=== PATIENT | female | born 1965 | race Caucasian/White ===

== ENCOUNTER 2017-01-22 10:05 | Emergency (ER) | payer MEDICARE, SELFPAY ==
--- NOTE | 2017-01-22 10:50 | ERPHSYRPT ---
- History of Present Illness Time Seen by Provider: 01/22/17 10:39 Source: patient Exam Limitations: no limitations Patient Subjective Stated Complaint: rt leg pain Triage Nursing Assessment: states got a pancreatic pain pump in october and in november her rt leg started swelling. she has had US, Ct and other diag tests. scheduled for an echo this coming wednesday. norted swelling from thigh to toes of rt leg. redness noted to lower calf/ankle. pedal pulse present. pain with ambulation. no open or scabbed areas. Physician History: The patient is a 51-year-old female who comes in with chronic right lower leg swelling, redness, and pain. The leg condition began within the day after a pain pump was placed in her abdomen for chronic pancreatitis. The pain pump was put in in October. Today she has severe pain in her forefoot. She called her primary care doctor in the nurse at his office said come to the ER. Her past medical history is significant for chronic pancreatitis, hypothyroidism, high cholesterol, depression, anxiety, and COPD. Method of Injury: unknown Occurred: other (2 to 3 months) Quality: constant Severity of Pain-Max: severe Severity of Pain-Current: severe Lower Extremities Pain: foot: right Modifying Factors: Improves With: nothing Associated Symptoms: none Allergies/Adverse Reactions: NSAIDS (Non-Steroidal Anti-Inflamma Allergy (Mild, Verified 01/22/17 10:25) unsure of reaction doxycycline Allergy (Verified 01/22/17 10:25) Tightness of Throat Home Medications: Cyclobenzaprine HCl [Flexeril] 10 mg PO BID 08/14/13 [History] Promethazine HCl 25 mg [Phenergan 25 mg] 25 mg PO UD PRN 08/14/13 [History ] Alprazolam [Xanax] 1 mg PO TID 12/27/14 [History] Citalopram Hydrobromide 20 mg* [ceLEXa 20 MG] 20 mg PO HS 12/27/14 [History] Gabapentin 300 mg PO HSPRN PRN 12/27/14 [History] Loperamide HCl 2 mg [Imodium 2 mg] 2 mg PO QIDPRN PRN 12/27/14 [History] Atorvastatin Calcium 20 mg PO DAILY 07/13/16 [History] Furosemide 20 mg [Lasix 20 mg] 40 mg PO DAILY 07/13/16 [History] Levothyroxine Sodium 50 Mcg [Synthroid 50 Mcg] 50 mcg PO DAILY 07/13/16 [ History] Hx Tetanus, Diphtheria Vaccination/Date Given: Yes Hx Influenza Vaccination/Date Given: No Hx Pneumococcal Vaccination/Date Given: No Immunizations Up to Date: Yes - Review of Systems Constitutional: No Fever, No Chills Eyes: No Symptoms Ears, Nose, & Throat: No Symptoms Respiratory: No Cough, No Dyspnea Cardiac: No Chest Pain, No Edema, No Syncope Abdominal/Gastrointestinal: No Abdominal Pain, No Nausea, No Vomiting, No Diarrhea Genitourinary Symptoms: No Dysuria Musculoskeletal: Other (right foot pain), No Back Pain, No Neck Pain Skin: No Rash Neurological: No Dizziness, No Focal Weakness, No Sensory Changes Psychological: No Symptoms Endocrine: No Symptoms Hematologic/Lymphatic: No Symptoms Immunological/Allergic: No Symptoms All Other Systems: Reviewed and Negative - Past Medical History Pertinent Past Medical History: Yes Neurological History: No Pertinent History ENT History: No Pertinent History Cardiac History: No Pertinent History Respiratory History: Other, Asthma, Bronchitis, Emphysema Endocrine Medical History: No Pertinent History Musculoskeletal History: No Pertinent History GI Medical History: Polyps, Other, Pancreatitis History: Other Psycho-Social History: Depression, Other Female Reproductive Disorders: Cervical Cancer, Ovarian Cancer Other Medical History: PANCREATIC DIVISION, CHRONIC PAIN - Past Surgical History Past Surgical History: Yes Neuro Surgical History: No Pertinent History Cardiac: No Pertinent History Respiratory: No Pertinent History Gastrointestinal: Exploratory Laparoscopy, Pancreatic Surgery, Cholecystectomy Genitourinary: No Pertinent History Musculoskeletal: No Pertinent History Female Surgical History: Hysterectomy Other Surgical History: 16 different abdominal surgeries, reconstructions bile port, 2 Feeding tubes--removed - Social History Smoking Status: Former smoker How long have you smoked: 30 years Exposure to second hand smoke: Yes Drug Use: none Patient Lives Alone: No - Female History Hx Now: No - Nursing Vital Signs Nursing Vital Signs: Initial Vital Signs Temperature 98.8 F Temperature Source Oral Pulse Rate 96 Respiratory Rate 18 Blood Pressure [Right Arm] 150/89 Pain Intensity 4 - Physical Exam General Appearance: mild distress Eyes, Ears, Nose, Throat Exam: moist mucous membranes Neck Exam: non-tender, supple Cardiovascular/Respiratory Exam: decreased breath sounds (wheezes) Gastrointestinal/Abdominal Exam: non-tender, guarding Back Exam: normal inspection, No vertebral tenderness Hips Exam: bilateral: non-tender, normal inspection Legs Exam: bilateral leg: non-tender, normal inspection Knees Exam: bilateral knee: non-tender, normal inspection Ankle Exam: right ankle: swelling, left ankle: normal inspection Foot Exam: right foot: swelling, left foot: normal inspection Neuro/Tendon Exam: normal sensation, normal motor functions Mental Status Exam: alert, oriented x 3, cooperative Skin Exam: normal color, warm, dry SpO2 Interpretation: borderline oxygenation SpO2: 93 Oxygen Delivery: Room Air - Progress Progress: unchanged Progress Note: 01/22/17 11:05 I discussed the patient with her primary medical doctor, Dr. Alonso, who recommends only tramadol 50 mg and Tylenol 500 mg for pain control at this time. He recommends no further testing. He will see the patient at his office on January 26, Wednesday, at 10:45. Discussed with DrCong: Gavin Will see patient in: office (January 26 at 10:45 in [place]) - Departure Time of Disposition: 11:07 Departure Disposition: Home Clinical Impression: Right foot pain Condition: Stable Critical Care Time: No Additional Instructions: You have right foot pain with an unknown cause. I spoke with your medical doctor, Dr. Alonso, who recommends few take tramadol 50 mg every 6 hours and Tylenol 500 mg every 6 hours as needed for pain. Follow-up at your scheduled appointment on Wednesday. Follow-up with Dr. Lobato on Wednesday at 1045. Prescriptions: Tramadol HCl 50 mg [Ultram 50 mg] 50 mg PO Q6H PRN PRN #12 tablet PRN Reason: Pain
[2017-01-22 11:25] VITALS: BP 140/74; PULSE 94; O2SAT 98
== END 2017-01-22 11:23 | disposition home or self-care (01) ==
LOC: ED 10:05
DX: M79.671 Pain in right foot (principal)
CPT/HCPCS: 99283

== ENCOUNTER 2017-08-03 09:28 | Inpatient (IN) | payer MEDICARE ==
[2017-08-03] MEDS ORDERED: Zofran 4 MG/2 ML VIAL IV PRN (20:34)
[2017-08-03] MEDS ORDERED: TYLENOL 325 MG PO PRN (20:34)
[2017-08-03] MEDS ORDERED: solu-MEDROL 40 MG IV SCH (20:45)
[2017-08-03] MEDS: Sodium Chloride 0.9% 1000 ML 1,000 ML IV SCH (21:01)
[2017-08-03] MEDS ORDERED: DUONEB 0.5-3 MG/3 ml Neb IH ONE (21:19)
[2017-08-03] MEDS: DUONEB 0.5-3 MG/3 ml Neb IH SCH (21:22)
[2017-08-03 21:39] LABS: Hematocrit 46.2 % (35-47); Hemoglobin 14.5 gm/dl (12.0-16.0); Mean Cell Volume 97.9 fl (78-100); Mean Corpuscular Hemoglobin 30.7 pg (26-32); Mean Corpuscular Hgb Concent. 31.4 g/dl (32-36); Mean Platelet Volume 10.1 fl (6-9.5); Platelet Count 269 K/mm3 (150-450); Red Blood Count 4.72 M/mm3 (4.1-5.4); Red Cell Distribution Width 13.4 % (11.5-14.0); White Blood Count 12.3 K/mm3 (4.0-10.5)
[2017-08-03 21:54] LABS: ALBUMIN 3.7 g/dL (3.4-5.0); ALKALINE PHOSPHATASE 173 U/L (46-116); ANION GAP 12.6 MEQ/L (5-15); BLOOD UREA NITROGEN 7 mg/dL (9-20); CHLORIDE 101 mEq/L (98-107); Calcium 9.1 mg/dL (8.5-10.1); Carbon Dioxide 28.9 mEq/L (21-32); Creatinine 1 0.87 mg/dl (0.55-1.30); EST GLOMERULAR FILTRATION RATE > 60 ML/MIN; Glucose 93 MG/DL (70-110); NT PRO BNP 59 pg/ml (0-125); Potassium 3.6 mEq/L (3.5-5.1); SGOT/AST 31 U/L (15-37); SGPT/ALT 53 U/L (12-78); SODIUM 139 mEq/L (136-145); Total Protein 8.4 gm/dL (6.4-8.2)
[2017-08-03 22:09] LABS: ABSOLUTE NEUTROPHILS 7.96 (1.4-6.9); BAND 2 % (0.0-2.0); Eosinophil 2 % (0.00-3.0); Lymphocytes 24 % (24-44); Monocyte 9 % (0.0-12.0); Neutrophils 63 % (36.0-66.0); Platelet Estimate NORMAL (NORMAL); Total Cells Counted 100
[2017-08-03] MEDS: ROCEPHIN 1 Gm-D5w 50 ml Bag** 1 G/50 ML IVPB IV SCH (23:15)
[2017-08-03] MEDS: ENOXAPARIN SODIUM SQ SCH (23:16)
[2017-08-03] MEDS: XANAX 1 MG PO SCH (23:51)
[2017-08-03] MEDS: Zocor 10MG PO SCH (23:51)
[2017-08-03] MEDS: ceLEXa 20 MG PO SCH (23:51)
[2017-08-03] MEDS: PHENERGAN 25 MG PO PRN (23:51)
[2017-08-03] MEDS: NEURONTIN 300 MG PO SCH (23:51)
[2017-08-03] MEDS: Cyclobenzaprine 10 MG PO PRN (23:52)
[2017-08-04] MEDS ORDERED: DUONEB 0.5-3 MG/3 ml Neb IH PRN (00:23)
[2017-08-04 01:22] LABS: Appearance CLEAR (CLEAR); Leukocyte Esterase NEGATIVE (NEGATIVE); Nitrite POSITIVE (NEGATIVE); Protein,Urine Dip NEGATIVE (Negative)
[2017-08-04 01:23] LABS: Bacteria MODERATE /HPF (NEGATIVE); Bilirubin NEGATIVE (NEGATIVE); Blood NEGATIVE Ery/ul (0-5); Epithelial Cells RARE /HPF (FEW); Glucose NEGATIVE (NEGATIVE); Ketones NEGATIVE (NEGATIVE); Urobilinogen NORMAL mg/dL (0-1)
[2017-08-04] MEDS: solu-MEDROL 40 MG IV SCH ×3 (05:31→23:01)
[2017-08-04] MEDS ORDERED: IMODIUM 2 MG PO PRN (07:09)
[2017-08-04] MEDS ORDERED: [UNRECOGNIZED DRUG - OTHER] SQ SCH (07:15)
[2017-08-04] MEDS ORDERED: PATIENT OWN MEDICATION SQ PRN (07:21)
[2017-08-04] MEDS: DUONEB 0.5-3 MG/3 ml Neb IH SCH ×4 (07:45→19:14)
[2017-08-04] MEDS: Sodium Chloride 0.9% 1000 ML 1,000 ML IV SCH (08:16)
[2017-08-04] MEDS: NEURONTIN 300 MG PO SCH ×3 (09:25→23:01)
[2017-08-04] MEDS: SYNTHROID 50 MCG PO SCH (09:25)
[2017-08-04] MEDS: XANAX 1 MG PO SCH ×3 (09:25→23:01)
[2017-08-04] MEDS: Protonix 40MG Tablet PO SCH (09:25)
--- NOTE | 2017-08-04 09:30 | PCM.NOTE ---
Date and Time: 08/04/17927 Subjective Assessment: still wheezing - Review of Systems Constitutional: No Fever, No Chills Eyes: No Symptoms Ears, Nose, & Throat: No Symptoms Respiratory: Cough, Orthopnea, Short Of Breath Cardiac: No Chest Pain, No Edema, No Syncope Abdominal/Gastrointestinal: No Abdominal Pain, No Nausea, No Vomiting, No Diarrhea Genitourinary Symptoms: No Dysuria Musculoskeletal: No Back Pain, No Neck Pain Skin: No Rash Neurological: No Dizziness, No Focal Weakness, No Sensory Changes Psychological: No Symptoms Endocrine: No Symptoms Hematologic/Lymphatic: No Symptoms Immunological/Allergic: No Symptoms Objective Exam General Appearance: no apparent distress, alert Neurologic Exam: alert, oriented x 3, cooperative, normal mood/affect, nml cerebellar function, sensation nml, No motor deficits Skin Exam: normal color, warm, dry Eye Exam: PERRL, EOMI, eyes nml inspection Ears, Nose, Throat Exam: normal ENT inspection, pharynx normal, moist mucous membranes Neck Exam: normal inspection, non-tender, supple, full range of motion Respiratory Exam: diminished breath sounds, crackles/rales, rhonchi, wheezing, No respiratory distress Cardiovascular Exam: regular rate/rhythm, normal heart sounds Gastrointestinal/Abdomen Exam: soft, No tenderness, No mass Extremity Exam: normal inspection, normal range of motion Back Exam: normal inspection, normal range of motion, No CVA tenderness, No vertebral tenderness Pelvic Exam: deferred Rectal Exam: deferred OBJECTIVE DATA Vital Signs: Vital Signs - 24 hr Temp Pulse Resp BP Pulse Ox 08/04/17 08:00 98.2 F 88 22 136/65 94 L 08/04/17 07:51 90 18 95 08/04/17 04:10 98.0 F 92 H 16 140/77 94 L 08/04/17 04:00 94 L 08/04/17 00:26 98.5 F 90 22 138/63 93 L 08/04/17 00:00 93 L 08/03/17 21:22 91 H 20 95 08/03/17 20:00 98.4 F 93 H 16 129/84 90 L 08/03/17 16:57 98.5 F 110 H 22 140/85 90 L 08/03/17 16:45 98.5 F 110 H 22 140/85 90 L Oxygen-Last 24 hours O2 Percentage 2 Liters = 28% O2 Percentage 2 Liters = 28% O2 Percentage 2 Liters = 28% O2 Percentage 2 Liters = 28% O2 Percentage 2 Liters = 28% Pain Assessment - Last Documented Pain Intensity 4 Pain Scale Used 0-10 Pain Scale Intake and Output: Intake & Output 08/01/17 08/02/17 08/03/17 08/04/17 11:59 11:59 11:59 11:59 Intake Total 1426 Output Total 850 Balance 576 Weight 64.229 kg Lab Results: Accuchecks Date 08/04/17 Date 08/03/17 Time 21:30 Accucheck Value: 132 Accucheck Value: 98 Accucheck Value: 98 Lab Results-Last 24 Hours 08/03/17 08/03/17 08/03/17 Range/Units 18:30 18:30 23:33 WBC 12.3 H (4.0-10.5) K/mm3 RBC 4.72 (4.1-5.4) M/mm3 Hgb 14.5 (12.0-16.0) gm/dl Hct 46.2 (35-47) % MCV 97.9 (78-100) fl MCH 30.7 (26-32) pg MCHC 31.4 L (32-36) g/dl RDW 13.4 (11.5-14.0) % Plt Count 269 (150-450) K/mm3 MPV 10.1 H (6-9.5) fl Absolute Neutrophils 7.96 (1.4-6.9) Segmented Neutrophils 63 (36.0-66.0) % Band Neutrophils 2 (0.0-2.0) % Lymphocytes (Manual) 24 (24-44) % Monocytes (Manual) 9 (0.0-12.0) % Eosinophils (Manual) 2 (0.00-3.0) % Differential Comment NORMAL Platelet Estimate NORMAL (NORMAL) Sodium 139 (136-145) mEq/L Potassium 3.6 (3.5-5.1) mEq/L Chloride 101 (98-107) mEq/L Carbon Dioxide 28.9 (21-32) mEq/L Anion Gap 12.6 (5-15) MEQ/L BUN 7 L (9-20) mg/dL Creatinine 0.87 (0.55-1.30) mg/dl Estimated GFR > 60 ML/MIN Glucose 93 (70-110) MG/DL Calcium 9.1 (8.5-10.1) mg/dL Total Bilirubin 0.40 (0.2-1.0) mg/dL AST 31 (15-37) U/L ALT 53 (12-78) U/L Alkaline Phosphatase 173 H (46-116) U/L NT-Pro-B Natriuret Pep 59 (0-125) pg/ml Serum Total Protein 8.4 H (6.4-8.2) gm/dL Albumin 3.7 (3.4-5.0) g/dL Ur Collection Type CLEAN CATCH Urine Color YELLOW (YELLOW) Urine Appearance CLEAR (CLEAR) Urine pH 5.0 (5-6) Ur Specific Onia 1.010 (1.005-1.025) Urine Protein NEGATIVE (Negative) Urine Ketones NEGATIVE (NEGATIVE) Urine Blood NEGATIVE (0-5) Jaret/ul Urine Nitrite POSITIVE (NEGATIVE) Urine Bilirubin NEGATIVE (NEGATIVE) Urine Urobilinogen NORMAL (0-1) mg/dL Ur Leukocyte Esterase NEGATIVE (NEGATIVE) Urine Microscopic RBC 0-2 (0-2) /HPF Urine Microscopic WBC 5-10 (0-5) /HPF Ur Epithelial Cells RARE (FEW) /HPF Urine Bacteria MODERATE (NEGATIVE) /HPF Urine Glucose NEGATIVE (NEGATIVE) mg/dL Specimen Received 08/03/17 2330 Radiology Exams: Radiology Procedures Category Date Time Status CHEST 2 VIEWS (PA AND LAT) Stat Exams 08/03/17 22:59 Taken ECHO W/2D AND DOPPLER [US] Routine Exams 08/04/17 20:41 Taken Assessment/Plan (1) COPD with exacerbation Current Visit: Yes Status: Acute Assessment & Plan: Chief Complaint Diagnosis COPD EXACERBATION Allergies Allergy/AdvReac Type Severity Reaction Status Date / Time NSAIDS (Non-Steroidal Allergy Mild Verified 01/22/17 10:25 Anti-Inflamma doxycycline Allergy Tightness Verified 01/22/17 10:25 of Throat Vital Signs (Last 24 hours) Temp Pulse Resp BP Pulse Ox 08/04/17 08:00 98.2 F 88 22 136/65 94 L 08/04/17 07:51 90 18 95 08/04/17 04:10 98.0 F 92 H 16 140/77 94 L 08/04/17 04:00 94 L 08/04/17 00:26 98.5 F 90 22 138/63 93 L 08/04/17 00:00 93 L 08/03/17 21:22 91 H 20 95 08/03/17 20:00 98.4 F 93 H 16 129/84 90 L 08/03/17 16:57 98.5 F 110 H 22 140/85 90 L 08/03/17 16:45 98.5 F 110 H 22 140/85 90 L Home Medications Medication Instructions Recorded Confirmed Last Taken Type Non-Formulary Drug [Non-Formulary 0 mg UD 08/03/17 08/03/17 08/03/17 History Item] Current Medications Generic Name Dose Route Start Last Admin Trade Name Freq PRN Reason Stop Dose Admin Acetaminophen 325 mg 08/03/17 20:34 Tylenol 325 Mg PO 09/02/17 20:33 Q4H PRN PRN PAIN, FEVER, HEADACHE Albuterol/Ipratropium 3 ml 08/03/17 19:00 08/04/17 07:45 Duoneb 0.5-3 Mg/3 Ml Neb IH 09/02/17 18:59 3 ml QIDRT LARON Administration Albuterol/Ipratropium 3 ml 08/04/17 00:23 Duoneb 0.5-3 Mg/3 Ml Neb IH 09/03/17 00:22 Q4HPRN PRN SHORTNESS OF BREATH/WHEEZING Alprazolam 1 mg 08/03/17 23:00 08/04/17 09:25 Xanax 1 Mg PO 09/02/17 22:59 1 mg TID LARON Administration Citalopram Hydrobromide 20 mg 08/03/17 23:00 08/03/17 23:51 Celexa 20 Mg PO 09/02/17 22:59 20 mg HS LARON Administration Cyclobenzaprine HCl 10 mg 08/03/17 23:11 08/03/17 23:52 Cyclobenzaprine 10 Mg PO 09/02/17 23:10 10 mg QIDPRN PRN Administration MUSCLE SPASMS Enoxaparin Sodium 40 mg 08/03/17 22:00 08/03/17 23:16 Enoxaparin Sodium SQ 09/02/17 21:59 40 mg Q24H22 LARON Administration Gabapentin 300 mg 08/03/17 23:00 08/04/17 09:25 Neurontin 300 Mg PO 09/02/17 22:59 300 mg TID LARON Administration Ceftriaxone Sodium/Dextrose 1 g in 50 mls @ 100 mls/hr 08/03/17 22:00 23:15 Rocephin 1 Gm-D5w 50 Ml Bag IV 09/02/17 21:59 100 mls/hr Q24H22 LARON Administration Sodium Chloride 1,000 mls @ 100 mls/hr 08/03/17 20:45 08/04/17 08:16 Sodium Chloride 0.9% 1000 Ml IV 09/02/17 20:44 100 mls/hr .Q10H LARON Administration Levothyroxine Sodium 50 mcg 08/04/17 10:00 08/04/17 09:25 Synthroid 50 Mcg PO 09/03/17 09:59 50 mcg DAILY LARON Administration Loperamide HCl 2 mg 08/04/17 07:09 Imodium 2 Mg PO 09/03/17 07:08 QIDPRN PRN diarrhea Methylprednisolone Sodium Succinate 40 mg 08/04/17 06:00 08/04/17 05:31 Solu-Medrol 40 Mg IV 09/02/17 20:44 40 mg Q8HT LARON Administration Ondansetron HCl 4 mg 08/03/17 20:34 Zofran 4 Mg/2 Ml Vial IV 09/02/17 20:33 Q6H PRN PRN NAUSEA/VOMITING Pantoprazole Sodium 40 mg 08/04/17 10:00 08/04/17 09:25 Protonix 40mg Tablet PO 09/03/17 09:59 40 mg DAILY LARON Administration Patient Own Medication 0 each 08/04/17 07:21 Patient Own Medication SQ 09/03/17 07:20 UD PRN PAIN Promethazine HCl 25 mg 08/03/17 23:13 08/03/17 23:51 Phenergan 25 Mg PO 09/02/17 23:12 25 mg Q6HPRN PRN Administration NAUSEA Simvastatin 10 mg 08/03/17 23:30 08/03/17 23:51 Zocor 10mg PO 09/02/17 23:29 10 mg HS LARON Administration Discontinued Medications Generic Name Dose Route Start Last Admin Trade Name Freq PRN Reason Stop Dose Admin Albuterol/Ipratropium Confirm 08/03/17 21:19 Duoneb 0.5-3 Mg/3 Ml Neb Administered 08/03/17 21:20 Dose 3 ml IH .STK-MED ONE Methylprednisolone Sodium Succinate 40 mg 08/03/17 20:45 08/03/17 21:01 Solu-Medrol 40 Mg IV 09/02/17 20:44 40 mg Q8H LARON Administration Intake & Output (Last 24 hours) 08/01/17 08/02/17 08/03/17 08/04/17 11:59 11:59 11:59 11:59 Intake Total 1426 Output Total 850 Balance 576 Weight 64.229 kg Laboratory Results (Last 24 hours) 08/03/17 08/03/17 08/03/17 23:33 18:30 18:30 WBC 12.3 H RBC 4.72 Hgb 14.5 Hct 46.2 MCV 97.9 MCH 30.7 MCHC 31.4 L RDW 13.4 Plt Count 269 MPV 10.1 H Absolute Neutrophils 7.96 Segmented Neutrophils 63 Band Neutrophils 2 Lymphocytes (Manual) 24 Monocytes (Manual) 9 Eosinophils (Manual) 2 Differential Comment NORMAL Platelet Estimate NORMAL Sodium 139 Potassium 3.6 Chloride 101 Carbon Dioxide 28.9 Anion Gap 12.6 BUN 7 L Creatinine 0.87 Estimated GFR > 60 Glucose 93 Calcium 9.1 Total Bilirubin 0.40 AST 31 ALT 53 Alkaline Phosphatase 173 H NT-Pro-B Natriuret Pep 59 Serum Total Protein 8.4 H Albumin 3.7 Ur Collection Type CLEAN CATCH Urine Color YELLOW Urine Appearance CLEAR Urine pH 5.0 Ur Specific Onia 1.010 Urine Protein NEGATIVE Urine Ketones NEGATIVE Urine Blood NEGATIVE Urine Nitrite POSITIVE Urine Bilirubin NEGATIVE Urine Urobilinogen NORMAL Ur Leukocyte Esterase NEGATIVE Urine Microscopic RBC 0-2 Urine Microscopic WBC 5-10 Ur Epithelial Cells RARE Urine Bacteria MODERATE Urine Glucose NEGATIVE Specimen Received 08/03/17 2330 Orders (Last 24 hours) Category Date Time Status Up Ad Makenzie TOLERATED Activity 08/03/17 20:39 Active Accucheck ACHS Care 08/03/17 20:38 Active Admission/Status Order ROUTINE Care 08/03/17 20:37 Active CHEST 2 VIEWS (PA AND LAT) Stat Exams 08/03/17 22:59 Taken ECHO W/2D AND DOPPLER [US] Routine Exams 08/04/17 20:41 Taken CBC W DIFF Stat Lab 08/03/17 18:30 Completed CMP Stat Lab 08/03/17 18:30 Completed Manual Differential NC Stat Lab 08/03/17 18:30 Completed NT PRO BNP Stat Lab 08/03/17 18:30 Completed UA W/ MICROSCOPIC Stat Lab 08/03/17 23:33 Completed Acetaminophen 325 mg [Tylenol 325 mg] Med 08/03/17 20:34 Active 325 mg PO Q4H PRN PRN Albuterol/Ipratropium 3ml Neb* [DUONEB 0.5-3 MG/3 ml Med 08/03/17 21:19 Discontinued Neb] 3 ml IH .STK-MED ONE Albuterol/Ipratropium 3ml Neb* [DUONEB 0.5-3 MG/3 ml Med 08/04/17 00:23 Active Neb] 3 ml IH Q4HPRN PRN Albuterol/Ipratropium 3ml Neb* [DUONEB 0.5-3 MG/3 ml Med 08/03/17 19:00 Active Neb] 3 ml IH QIDRT Alprazolam 1 mg [Xanax 1 mg] Med 08/03/17 23:00 Active 1 mg PO TID Ceftriaxone 1 GM/50 ML PREMIX* [ROCEPHIN 1 Gm-D5w 50 ml Med 08/03/17 22:00 Active Bag] 1 g in 50 ml IV Q24H22 Citalopram Hydrobromide 20 mg* [ceLEXa 20 MG] Med 08/03/17 23:00 Active 20 mg PO HS Cyclobenzaprine HCl 10 mg [Cyclobenzaprine 10 MG] Med 08/03/17 23:11 Active 10 mg PO QIDPRN PRN Enoxaparin Sodium [Enoxaparin Sodium] Med 08/03/17 22:00 Active 40 mg SQ Q24H22 Gabapentin 300 mg [Neurontin 300 mg] Med 08/03/17 23:00 Active 300 mg PO TID Levothyroxine Sodium 50 Mcg [Synthroid 50 Mcg] Med 08/04/17 10:00 Active 50 mcg PO DAILY Loperamide HCl 2 mg [Imodium 2 mg] Med 08/04/17 07:09 Active 2 mg PO QIDPRN PRN Methylprednisolone Sod Suc 40M [solu-MEDROL 40 MG] Med 08/03/17 20:45 Discontinued 40 mg IV Q8H Methylprednisolone Sod Suc 40M [solu-MEDROL 40 MG] Med 08/04/17 06:00 Active 40 mg IV Q8HT NaCl 0.9% 1000 ml [Sodium Chloride 0.9% 1000 ML] 1,000 Med 08/03/17 20:45 Active ml IV 100 mls/hr Ondansetron HCl 4 mg/2 ml [Zofran 4 MG/2 ML VIAL] Med 08/03/17 20:34 Active 4 mg IV Q6H PRN PRN PANTOPRAZOLE 40 mg Tablet [Protonix 40MG Tablet] Med 08/04/17 10:00 Active 40 mg PO DAILY Patient Own Med [Patient Own Medication] Med 08/04/17 07:21 Active 0 each SQ UD PRN Promethazine HCl 25 mg [Phenergan 25 mg] Med 08/03/17 23:13 Active 25 mg PO Q6HPRN PRN Simvastatin 10 mg [Zocor 10MG] Med 08/03/17 23:30 Active 10 mg PO HS EKG STAT RT 08/03/17 20:34 Completed Oxygen NASAL CANNULA 2 lpm RT 08/04/17 00:25 Active Pulse Oximetry Q4H RT 08/03/17 20:40 Active Respiratory Nebulizer PRN RT 08/04/17 00:25 Active Respiratory Nebulizer UD RT 08/03/17 19:00 Active Respiratory Therapy Consult ROUTINE RT 08/03/17 20:34 Completed Patient Care Notes (Last 24 hours) 08/03/17 18:35 Nursing Note by Stephanie Dee DR FOR ORDERS ON DIRECT ADMIT Initialized on 08/03/17 18:35 - END OF NOTE Code(s): J44.1 - CHRONIC OBSTRUCTIVE PULMONARY DISEASE W (ACUTE) EXACERBATION (2) UTI (urinary tract infection) Current Visit: Yes Status: Acute Qualifiers: Urinary tract infection type: acute pyelonephritis Qualified Code(s): N10 - Acute pyelonephritis Code(s): N39.0 - URINARY TRACT INFECTION, SITE NOT SPECIFIED (3) History of chronic pancreatitis Current Visit: No Status: Chronic Code(s): Z87.19 - PERSONAL HISTORY OF OTHER DISEASES OF THE DIGESTIVE SYSTEM
--- NOTE | 2017-08-04 09:36 | XRAY ---
Indication: Short of breath. Comparison: November 12, 2015. PA/lateral chest again demonstrates normal heart, lungs, and bony thorax with incidental calcified granulomas.
[2017-08-04] MEDS: Zocor 10MG PO SCH (23:00)
[2017-08-04] MEDS: ENOXAPARIN SODIUM SQ SCH (23:01)
[2017-08-04] MEDS: ceLEXa 20 MG PO SCH (23:01)
[2017-08-04] MEDS: ROCEPHIN 1 Gm-D5w 50 ml Bag** 1 G/50 ML IVPB IV SCH (23:01)
[2017-08-04] MEDS: Cyclobenzaprine 10 MG PO PRN (23:44)
[2017-08-05] MEDS: Sodium Chloride 0.9% 1000 ML 1,000 ML IV SCH (01:41)
[2017-08-05] MEDS: solu-MEDROL 40 MG IV SCH ×3 (05:53→22:28)
[2017-08-05 06:10] LABS: Hematocrit 38.1 % (35-47); Hemoglobin 11.7 gm/dl (12.0-16.0); Mean Cell Volume 98.4 fl (78-100); Mean Corpuscular Hemoglobin 30.2 pg (26-32); Mean Corpuscular Hgb Concent. 30.7 g/dl (32-36); Platelet Count 251 K/mm3 (150-450); Red Blood Count 3.87 M/mm3 (4.1-5.4); Red Cell Distribution Width 13.4 % (11.5-14.0); White Blood Count 16.8 K/mm3 (4.0-10.5)
[2017-08-05 06:45] LABS: ALBUMIN 2.9 g/dL (3.4-5.0); ALKALINE PHOSPHATASE 118 U/L (46-116); ANION GAP 10.7 MEQ/L (5-15); BLOOD UREA NITROGEN 13 mg/dL (9-20); CHLORIDE 106 mEq/L (98-107); Calcium 8.6 mg/dL (8.5-10.1); Carbon Dioxide 28.4 mEq/L (21-32); Creatinine 1 0.65 mg/dl (0.55-1.30); EST GLOMERULAR FILTRATION RATE > 60 ML/MIN; Glucose 153 MG/DL (70-110); Potassium 4.6 mEq/L (3.5-5.1); SGOT/AST 21 U/L (15-37); SGPT/ALT 38 U/L (12-78); SODIUM 141 mEq/L (136-145); Total Protein 6.7 gm/dL (6.4-8.2)
[2017-08-05] MEDS: DUONEB 0.5-3 MG/3 ml Neb IH SCH ×4 (06:55→19:39)
--- NOTE | 2017-08-05 09:03 | XRAY ---
Indication: Pain. No known injury. Comparison: None 2 views of the right knee demonstrates mild osteopenia, medial joint space narrowing, and proximal tibial stress lines. Query old medial tibial plateau fracture. No other bony, articular, or soft tissue abnormalities. Comment: Preliminary interpretation was made by [facility]. No critical discrepancy.
[2017-08-05] MEDS: NEURONTIN 300 MG PO SCH ×3 (09:51→22:27)
[2017-08-05] MEDS: SYNTHROID 50 MCG PO SCH (09:51)
[2017-08-05] MEDS: XANAX 1 MG PO SCH ×3 (09:51→22:27)
[2017-08-05] MEDS: Protonix 40MG Tablet PO SCH (09:51)
[2017-08-05] MEDS: Cyclobenzaprine 10 MG PO PRN ×2 (09:55→22:28)
--- NOTE | 2017-08-05 13:41 | PCM.NOTE ---
Date and Time: 08/05/17 1340 Subjective Assessment: doing better - Review of Systems Constitutional: No Fever, No Chills Eyes: No Symptoms Ears, Nose, & Throat: No Symptoms Respiratory: No Cough, No Short Of Breath Cardiac: No Chest Pain, No Edema, No Syncope Abdominal/Gastrointestinal: No Abdominal Pain, No Nausea, No Vomiting, No Diarrhea Genitourinary Symptoms: No Dysuria Musculoskeletal: No Back Pain, No Neck Pain Skin: No Rash Neurological: No Dizziness, No Focal Weakness, No Sensory Changes Psychological: No Symptoms Endocrine: No Symptoms Hematologic/Lymphatic: No Symptoms Immunological/Allergic: No Symptoms Objective Exam General Appearance: no apparent distress, alert Neurologic Exam: alert, oriented x 3, cooperative, normal mood/affect, nml cerebellar function, sensation nml, No motor deficits Skin Exam: normal color, warm, dry Eye Exam: PERRL, EOMI, eyes nml inspection Ears, Nose, Throat Exam: normal ENT inspection, pharynx normal, moist mucous membranes Neck Exam: normal inspection, non-tender, supple, full range of motion Respiratory Exam: normal breath sounds, lungs clear, No respiratory distress Cardiovascular Exam: regular rate/rhythm, normal heart sounds Gastrointestinal/Abdomen Exam: soft, No tenderness, No mass Extremity Exam: normal inspection, normal range of motion Back Exam: normal inspection, normal range of motion, No CVA tenderness, No vertebral tenderness Pelvic Exam: deferred Rectal Exam: deferred OBJECTIVE DATA Vital Signs: Vital Signs - 24 hr Temp Pulse Resp BP Pulse Ox 08/05/17 12:04 88 20 96 08/05/17 11:57 98.8 F 91 H 20 117/64 96 08/05/17 08:00 98.1 F 82 20 110/66 96 08/05/17 06:55 82 16 95 08/05/17 04:00 97.9 F 81 16 117/61 95 08/05/17 00:00 98.4 F 98 H 22 131/68 97 08/04/17 20:00 98.1 F 106 H 24 138/74 95 08/04/17 19:14 100 H 20 96 08/04/17 16:00 98.2 F 107 H 22 118/68 92 L 08/04/17 14:58 106 H 18 95 Oxygen-Last 24 hours O2 Percentage 2 Liters = 28% O2 Percentage 2 Liters = 28% O2 Percentage 2 Liters = 28% O2 Percentage 2 Liters = 28% O2 Percentage 2 Liters = 28% O2 Percentage 2 Liters = 28% Pain Assessment - Last Documented Pain Intensity 4 Pain Scale Used 0-10 Pain Scale Intake and Output: Intake & Output 08/03/17 08/04/17 08/05/17 08/06/17 11:59 11:59 11:59 11:59 Intake Total 1426 3519 Output Total 850 1600 Balance 576 1919 Weight 64.229 kg Lab Results: Accuchecks Date 08/05/17 Date 08/05/17 Date 08/04/17 Time 11:30 Time 07:30 Accucheck Value: 169 Accucheck Value: 150 Accucheck Value: 139 Accucheck Value: 178 Lab Results-Last 24 Hours 08/03/17 08/05/17 08/05/17 Range/Units 18:30 05:45 05:45 WBC 16.8 H (4.0-10.5) K/mm3 RBC 3.87 L (4.1-5.4) M/mm3 Hgb 11.7 L (12.0-16.0) gm/dl Hct 38.1 (35-47) % MCV 98.4 (78-100) fl MCH 30.2 (26-32) pg MCHC 30.7 L (32-36) g/dl RDW 13.4 (11.5-14.0) % Plt Count 251 (150-450) K/mm3 MPV 10.0 H (6-9.5) fl Sodium 141 (136-145) mEq/L Potassium 4.6 (3.5-5.1) mEq/L Chloride 106 (98-107) mEq/L Carbon Dioxide 28.4 (21-32) mEq/L Anion Gap 10.7 (5-15) MEQ/L BUN 13 (9-20) mg/dL Creatinine 0.65 (0.55-1.30) mg/dl Estimated GFR > 60 ML/MIN Glucose 153 H (70-110) MG/DL Hemoglobin A1c 6.0 (4.5-6.2) Calcium 8.6 (8.5-10.1) mg/dL Total Bilirubin 0.10 L (0.2-1.0) mg/dL AST 21 (15-37) U/L ALT 38 (12-78) U/L Alkaline Phosphatase 118 H (46-116) U/L Serum Total Protein 6.7 (6.4-8.2) gm/dL Albumin 2.9 L (3.4-5.0) g/dL Radiology Exams: Radiology Procedures Category Date Time Status CHEST 2 VIEWS (PA AND LAT) Stat Exams 08/03/17 22:59 Completed ECHO W/2D AND DOPPLER [US] Routine Exams 08/04/17 20:41 Taken KNEE (1 OR 2 VIEW) Urgent Exams 08/04/17 22:35 Completed Assessment/Plan (1) COPD with exacerbation Current Visit: Yes Status: Acute Code(s): J44.1 - CHRONIC OBSTRUCTIVE PULMONARY DISEASE W (ACUTE) EXACERBATION (2) UTI (urinary tract infection) Current Visit: Yes Status: Acute Qualifiers: Urinary tract infection type: acute pyelonephritis Qualified Code(s): N10 - Acute pyelonephritis Code(s): N39.0 - URINARY TRACT INFECTION, SITE NOT SPECIFIED (3) History of chronic pancreatitis Current Visit: No Status: Chronic Code(s): Z87.19 - PERSONAL HISTORY OF OTHER DISEASES OF THE DIGESTIVE SYSTEM
[2017-08-05] MEDS ORDERED: TORAdol 10 MG TABLET PO SCH (14:15)
[2017-08-05] MEDS: TORAdol 10 MG TABLET PO SCH ×3 (15:19→22:27)
[2017-08-05] MEDS: PHENERGAN 25 MG PO PRN ×2 (15:22→23:06)
[2017-08-05] MEDS: ceLEXa 20 MG PO SCH (22:27)
[2017-08-05] MEDS: Zocor 10MG PO SCH (22:27)
[2017-08-05] MEDS: ROCEPHIN 1 Gm-D5w 50 ml Bag** 1 G/50 ML IVPB IV SCH (22:28)
[2017-08-05] MEDS: ENOXAPARIN SODIUM SQ SCH (22:28)
[2017-08-06] MEDS: Sodium Chloride 0.9% 1000 ML 1,000 ML IV SCH (00:39)
[2017-08-06] MEDS: solu-MEDROL 40 MG IV SCH ×3 (05:38→21:41)
[2017-08-06] MEDS: DUONEB 0.5-3 MG/3 ml Neb IH SCH ×4 (05:49→18:52)
--- NOTE | 2017-08-06 08:25 | PCM.NOTE ---
Date and Time: 08/06/17823 Subjective Assessment: c/o right knee pain, otherwise doing better - Review of Systems Constitutional: No Fever, No Chills Eyes: No Symptoms Ears, Nose, & Throat: No Symptoms Respiratory: No Cough, No Short Of Breath Cardiac: No Chest Pain, No Edema, No Syncope Abdominal/Gastrointestinal: No Abdominal Pain, No Nausea, No Vomiting, No Diarrhea Genitourinary Symptoms: No Dysuria Musculoskeletal: Joint Pain (right knee), No Back Pain, No Neck Pain Skin: No Rash Neurological: No Dizziness, No Focal Weakness, No Sensory Changes Psychological: No Symptoms Endocrine: No Symptoms Hematologic/Lymphatic: No Symptoms Immunological/Allergic: No Symptoms Objective Exam General Appearance: no apparent distress, alert Neurologic Exam: alert, oriented x 3, cooperative, normal mood/affect, nml cerebellar function, sensation nml, No motor deficits Skin Exam: normal color, warm, dry Eye Exam: PERRL, EOMI, eyes nml inspection Ears, Nose, Throat Exam: normal ENT inspection, pharynx normal, moist mucous membranes Neck Exam: normal inspection, non-tender, supple, full range of motion Respiratory Exam: wheezing, No respiratory distress Cardiovascular Exam: regular rate/rhythm, normal heart sounds Gastrointestinal/Abdomen Exam: soft, No tenderness, No mass Extremity Exam: normal inspection, normal range of motion Back Exam: normal inspection, normal range of motion, No CVA tenderness, No vertebral tenderness Pelvic Exam: deferred Rectal Exam: deferred OBJECTIVE DATA Vital Signs: Vital Signs - 24 hr Temp Pulse Resp BP Pulse Ox 08/06/17 07:49 22 96 08/06/17 07:23 98 F 79 22 138/74 96 08/06/17 05:49 81 17 93 L 08/06/17 04:00 98.1 F 91 H 17 124/62 93 L 08/06/17 00:09 98.3 F 76 20 129/70 96 08/06/17 00:00 20 96 08/05/17 20:18 98.2 F 100 H 20 112/59 97 08/05/17 20:00 20 97 08/05/17 19:39 104 H 21 97 08/05/17 16:00 98.6 F 100 H 22 131/66 96 08/05/17 14:53 98 H 20 93 L 08/05/17 12:04 88 20 96 08/05/17 12:00 20 08/05/17 11:57 98.8 F 91 H 20 117/64 96 Oxygen-Last 24 hours O2 Percentage 3 Liters = 32% O2 Percentage 2 Liters = 28% O2 Percentage 2 Liters = 28% O2 Percentage 2 Liters = 28% O2 Percentage 2 Liters = 28% O2 Percentage 2 Liters = 28% Pain Assessment - Last Documented Pain Intensity 4 Pain Scale Used 0-10 Pain Scale Intake and Output: Intake & Output 08/03/17 08/04/17 08/05/17 08/06/17 11:59 11:59 11:59 11:59 Intake Total 1426 3519 1816 Output Total 850 1600 1700 Balance 576 1919 116 Weight 64.229 kg Lab Results: Accuchecks Date 08/06/17 Date 08/05/17 Date 08/05/17 Time 22:00 Time 11:30 Accucheck Value: 127 Accucheck Value: 159 Accucheck Value: 155 Accucheck Value: 169 Radiology Exams: Radiology Procedures Category Date Time Status ECHO W/2D AND DOPPLER [US] Routine Exams 08/04/17 20:41 Taken KNEE (1 OR 2 VIEW) Urgent Exams 08/04/17 22:35 Completed Multi-Disciplinary Progress Notes: Multi-Disciplinary Progress Notes 08/05/17 09:25 (created 08/05/17 14:28) Case Management Note by Monica Colmenares DISCHARGE PLAN REVIEWED, INDEPENDENT WITH ALL ADL'S. CONTINUES TO DECLINE NEEDS FOR DISCHARGE AT THIS TIME. WILL FOLLOW FOR ALL DC NEEDS. Initialized on 08/05/17 14:28 - END OF NOTE Assessment/Plan (1) COPD with exacerbation Current Visit: Yes Status: Acute Code(s): J44.1 - CHRONIC OBSTRUCTIVE PULMONARY DISEASE W (ACUTE) EXACERBATION (2) UTI (urinary tract infection) Current Visit: Yes Status: Acute Qualifiers: Urinary tract infection type: acute pyelonephritis Qualified Code(s): N10 - Acute pyelonephritis Code(s): N39.0 - URINARY TRACT INFECTION, SITE NOT SPECIFIED (3) History of chronic pancreatitis Current Visit: No Status: Chronic Code(s): Z87.19 - PERSONAL HISTORY OF OTHER DISEASES OF THE DIGESTIVE SYSTEM
[2017-08-06] MEDS: Protonix 40MG Tablet PO SCH (08:51)
[2017-08-06] MEDS: TORAdol 10 MG TABLET PO SCH ×4 (08:51→21:42)
[2017-08-06] MEDS: NEURONTIN 300 MG PO SCH ×3 (08:51→21:42)
[2017-08-06] MEDS: SYNTHROID 50 MCG PO SCH (08:51)
[2017-08-06] MEDS: XANAX 1 MG PO SCH ×3 (08:51→21:42)
[2017-08-06 10:27] LABS: Hemoglobin 11.1 gm/dl (12.0-16.0); Mean Cell Volume 100.3 fl (78-100); Mean Platelet Volume 9.9 fl (6-9.5); Platelet Count 212 K/mm3 (150-450); Red Blood Count 3.69 M/mm3 (4.1-5.4); Red Cell Distribution Width 13.6 % (11.5-14.0)
[2017-08-06 10:53] LABS: ALBUMIN 2.8 g/dL (3.4-5.0); ALKALINE PHOSPHATASE 99 U/L (46-116); ANION GAP 11.4 MEQ/L (5-15); BLOOD UREA NITROGEN 17 mg/dL (9-20); CHLORIDE 107 mEq/L (98-107); Calcium 8.4 mg/dL (8.5-10.1); Carbon Dioxide 26.5 mEq/L (21-32); Creatinine 1 0.79 mg/dl (0.55-1.30); EST GLOMERULAR FILTRATION RATE > 60 ML/MIN; Glucose 205 MG/DL (70-110); Potassium 4.2 mEq/L (3.5-5.1); SGOT/AST 23 U/L (15-37); SGPT/ALT 46 U/L (12-78); SODIUM 141 mEq/L (136-145); Total Protein 6.4 gm/dL (6.4-8.2)
[2017-08-06] MEDS: ROCEPHIN 1 Gm-D5w 50 ml Bag** 1 G/50 ML IVPB IV SCH (21:41)
[2017-08-06] MEDS: ceLEXa 20 MG PO SCH (21:42)
[2017-08-06] MEDS: Zocor 10MG PO SCH (21:42)
[2017-08-06] MEDS: ENOXAPARIN SODIUM SQ SCH (21:42)
[2017-08-07] MEDS ORDERED: XYLOCAINE 1% HCL 20 ML MDV ONE (00:34)
[2017-08-07] MEDS ORDERED: Marcaine 0.5% SDV 10 ML ONE (00:43)
[2017-08-07] MEDS ORDERED: Kenalog-10 MG/1 ML 10 ML VIAL IM ONE ×2 (00:47→01:04)
[2017-08-07] MEDS ORDERED: Kenalog-40 IM ONE (01:38)
[2017-08-07] MEDS ORDERED: Marcaine 0.5% SDV 10 ML IJ ONE (01:41)
[2017-08-07] MEDS: solu-MEDROL 40 MG IV SCH (06:15)
--- NOTE | 2017-08-07 06:41 | PCM.DS ---
Discharge Summary Date of Admission: 08/04/17 09:28 Admitting Physician: BRODERICK LAINEZ Consults: Consults on Case 08/05/17 14:09 Consult Ortho ROUTINE Primary Care Provider: BRODERICK LAINEZ Allergies Allergies NSAIDS (Non-Steroidal Anti-Inflamma Allergy (Mild, Verified 01/22/17 10:25) unsure of reaction doxycycline Allergy (Verified 01/22/17 10:25) Tightness of Throat Hospital Summary - Hospital Course Hospital Course: Home Medications Cyclobenzaprine HCl [Flexeril] 10 mg PO UD 08/14/13 [Confirmed 08/03/17] Promethazine HCl 25 mg [Phenergan 25 mg] 25 mg PO Q6H PRN PRN 08/14/13 [ Confirmed 08/03/17] Alprazolam [Xanax] 1 mg PO TID 12/27/14 [Confirmed 08/03/17] Citalopram Hydrobromide 20 mg* [ceLEXa 20 MG] 20 mg PO HS 12/27/14 [ Confirmed 08/03/17] Gabapentin 300 mg PO TID 12/27/14 [Confirmed 08/03/17] Loperamide HCl 2 mg [Imodium 2 mg] 2 mg PO QIDPRN PRN 12/27/14 [Confirmed 08/03/17] Atorvastatin Calcium 10 mg PO HS 07/13/16 [Confirmed 08/03/17] Levothyroxine Sodium 50 Mcg [Synthroid 50 Mcg] 50 mcg PO DAILY 07/13/16 [ Confirmed 08/03/17] Non-Formulary Drug [Non-Formulary Item] 0 mg UD 08/03/17 [Confirmed 08/03/17] Active Inpatient Medications Acetaminophen (Tylenol 325 Mg) 325 mg PO Q4H PRN PRN PRN Reason: PAIN, FEVER, HEADACHE Stop: 09/02/17 20:33 Last Admin: 08/04/17 20:51 Dose: 325 mg Albuterol/Ipratropium (Duoneb 0.5-3 Mg/3 Ml Neb) 3 ml IH QIDRT [facility] Stop: 09/02/17 18:59 Last Admin: 08/06/17 18:52 Dose: 3 ml Albuterol/Ipratropium (Duoneb 0.5-3 Mg/3 Ml Neb) 3 ml IH Q4HPRN PRN PRN Reason: SHORTNESS OF BREATH/WHEEZING Stop: 09/03/17 00:22 Alprazolam (Xanax 1 Mg) 1 mg PO TID [facility] Stop: 09/02/17 22:59 Last Admin: 08/06/17 21:42 Dose: 1 mg Bupivacaine HCl (Marcaine 0.5% Sdv 10 Ml) 10 ml IJ STAT ONE Stop: 08/07/17 01:42 Last Admin: 08/07/17 02:08 Dose: 10 ml Citalopram Hydrobromide (Celexa 20 Mg) 20 mg PO HS [facility] Stop: 09/02/17 22:59 Last Admin: 08/06/17 21:42 Dose: 20 mg Cyclobenzaprine HCl (Cyclobenzaprine 10 Mg) 10 mg PO QIDPRN PRN PRN Reason: MUSCLE SPASMS Stop: 09/02/17 23:10 Last Admin: 08/05/17 22:28 Dose: 10 mg Enoxaparin Sodium (Enoxaparin Sodium) 40 mg SQ Q24H22 [facility] Stop: 09/02/17 21:59 Last Admin: 08/06/17 21:42 Dose: 40 mg Gabapentin (Neurontin 300 Mg) 300 mg PO TID [facility] Stop: 09/02/17 22:59 Last Admin: 08/06/17 21:42 Dose: 300 mg Ceftriaxone Sodium/Dextrose (Rocephin 1 Gm-D5w 50 Ml Bag) 1 g in 50 mls @ 100 mls/hr IV Q24H22 [facility] Stop: 09/02/17 21:59 Last Admin: 08/06/17 21:41 Dose: 100 mls/hr Sodium Chloride (Sodium Chloride 0.9% 1000 Ml) 1,000 mls @ 50 mls/hr IV .Q20H [facility] Stop: 09/02/17 20:44 Last Admin: 08/06/17 00:39 Dose: 100 mls/hr Ketorolac Tromethamine (Toradol 10 Mg Tablet) 10 mg PO QID [facility] Stop: 08/10/17 14:14 Last Admin: 08/06/17 21:42 Dose: 10 mg Levothyroxine Sodium (Synthroid 50 Mcg) 50 mcg PO DAILY [facility] Stop: 09/03/17 09:59 Last Admin: 08/06/17 08:51 Dose: 50 mcg Lidocaine HCl (Xylocaine 1% Hcl 20 Ml Mdv) 20 ml IJ PRN PRN PRN Reason: aspiration Stop: 08/12/17 04:59 Last Admin: 08/07/17 02:10 Dose: 20 ml Loperamide HCl (Imodium 2 Mg) 2 mg PO QIDPRN PRN PRN Reason: diarrhea Stop: 09/03/17 07:08 Methylprednisolone Sodium Succinate (Solu-Medrol 40 Mg) 40 mg IV Q8HT [facility] Stop: 09/02/17 20:44 Last Admin: 08/07/17 06:15 Dose: 40 mg Ondansetron HCl (Zofran 4 Mg/2 Ml Vial) 4 mg IV Q6H PRN PRN PRN Reason: NAUSEA/VOMITING Stop: 09/02/17 20:33 Pantoprazole Sodium (Protonix 40mg Tablet) 40 mg PO DAILY [facility] Stop: 09/03/17 09:59 Last Admin: 08/06/17 08:51 Dose: 40 mg Patient Own Medication (Patient Own Medication) 0 each SQ UD PRN PRN Reason: PAIN Stop: 09/03/17 07:20 Promethazine HCl (Phenergan 25 Mg) 25 mg PO Q6HPRN PRN PRN Reason: NAUSEA Stop: 09/02/17 23:12 Last Admin: 08/05/17 23:06 Dose: 25 mg Simvastatin (Zocor 10mg) 10 mg PO HS [facility] Stop: 09/02/17 23:29 Last Admin: 08/06/17 21:42 Dose: 10 mg Triamcinolone Acetonide (Kenalog-40) 40 mg IM 1XONLY ONE Stop: 08/07/17 01:39 Last Admin: 08/07/17 02:07 Dose: 40 mg Chief Complaint Diagnosis COPD EXACERBATION, UTI Allergies Allergy/AdvReac Type Severity Reaction Status Date / Time NSAIDS (Non-Steroidal Allergy Mild Verified 01/22/17 10:25 Anti-Inflamma doxycycline Allergy Tightness Verified 01/22/17 10:25 of Throat Vital Signs (Last 24 hours) Temp Pulse Resp BP Pulse Ox 08/07/17 04:00 98.8 F 110 H 20 144/77 94 L 08/07/17 00:00 98.8 F 95 H 15 162/74 94 L 08/06/17 23:58 15 94 L 08/06/17 20:00 18 95 08/06/17 19:56 99.1 F 118 H 16 159/74 95 08/06/17 18:52 102 H 22 96 08/06/17 16:19 97.8 F 98 H 20 140/91 96 08/06/17 15:53 20 08/06/17 14:51 90 20 98 08/06/17 12:26 97.9 F 89 20 123/62 97 08/06/17 11:48 20 08/06/17 10:55 88 20 95 08/06/17 07:49 22 96 08/06/17 07:23 98 F 79 22 138/74 96 Home Medications Medication Instructions Recorded Confirmed Last Taken Type Non-Formulary Drug [Non-Formulary 0 mg UD 08/03/17 08/03/17 08/03/17 History Item] Current Medications Generic Name Dose Route Start Last Admin Trade Name Freq PRN Reason Stop Dose Admin Acetaminophen 325 mg 08/03/17 20:34 08/04/17 20:51 Tylenol 325 Mg PO 09/02/17 20:33 325 mg Q4H PRN PRN Administration PAIN, FEVER, HEADACHE Albuterol/Ipratropium 3 ml 08/03/17 19:00 08/06/17 18:52 Duoneb 0.5-3 Mg/3 Ml Neb IH 09/02/17 18:59 3 ml QIDRT [facility] Administration Albuterol/Ipratropium 3 ml 08/04/17 00:23 Duoneb 0.5-3 Mg/3 Ml Neb IH 09/03/17 00:22 Q4HPRN PRN SHORTNESS OF BREATH/WHEEZING Alprazolam 1 mg 08/03/17 23:00 08/06/17 21:42 Xanax 1 Mg PO 09/02/17 22:59 1 mg TID [facility] Administration Bupivacaine HCl 10 ml 08/07/17 01:41 08/07/17 02:08 Marcaine 0.5% Sdv 10 Ml IJ 08/07/17 01:42 10 ml STAT ONE Administration Citalopram Hydrobromide 20 mg 08/03/17 23:00 08/06/17 21:42 Celexa 20 Mg PO 09/02/17 22:59 20 mg HS [facility] Administration Cyclobenzaprine HCl 10 mg 08/03/17 23:11 08/05/17 22:28 Cyclobenzaprine 10 Mg PO 09/02/17 23:10 10 mg QIDPRN PRN Administration MUSCLE SPASMS Enoxaparin Sodium 40 mg 08/03/17 22:00 08/06/17 21:42 Enoxaparin Sodium SQ 09/02/17 21:59 40 mg Q24H22 [facility] Administration Gabapentin 300 mg 08/03/17 23:00 08/06/17 21:42 Neurontin 300 Mg PO 09/02/17 22:59 300 mg TID [facility] Administration Ceftriaxone Sodium/Dextrose 1 g in 50 mls @ 100 mls/hr 08/03/17 22:00 21:41 Rocephin 1 Gm-D5w 50 Ml Bag IV 09/02/17 21:59 100 mls/hr Q24H22 [facility] Administration Sodium Chloride 1,000 mls @ 50 mls/hr 08/03/17 20:45 08/06/17 00:39 Sodium Chloride 0.9% 1000 Ml IV 09/02/17 20:44 100 mls/hr .Q20H [facility] Administration Ketorolac Tromethamine 10 mg 08/05/17 14:15 08/06/17 21:42 Toradol 10 Mg Tablet PO 08/10/17 14:14 10 mg QID [facility] Administration Levothyroxine Sodium 50 mcg 08/04/17 10:00 08/06/17 08:51 Synthroid 50 Mcg PO 09/03/17 09:59 50 mcg DAILY [facility] Administration Lidocaine HCl 20 ml 08/08/17 05:00 08/07/17 02:10 Xylocaine 1% Hcl 20 Ml Mdv IJ 08/12/17 04:59 20 ml PRN PRN Administration aspiration Loperamide HCl 2 mg 08/04/17 07:09 Imodium 2 Mg PO 09/03/17 07:08 QIDPRN PRN diarrhea Methylprednisolone Sodium Succinate 40 mg 08/04/17 06:00 08/07/17 06:15 Solu-Medrol 40 Mg IV 09/02/17 20:44 40 mg Q8HT [facility] Administration Ondansetron HCl 4 mg 08/03/17 20:34 Zofran 4 Mg/2 Ml Vial IV 09/02/17 20:33 Q6H PRN PRN NAUSEA/VOMITING Pantoprazole Sodium 40 mg 08/04/17 10:00 08/06/17 08:51 Protonix 40mg Tablet PO 09/03/17 09:59 40 mg DAILY [facility] Administration Patient Own Medication 0 each 08/04/17 07:21 Patient Own Medication SQ 09/03/17 07:20 UD PRN PAIN Promethazine HCl 25 mg 08/03/17 23:13 08/05/17 23:06 Phenergan 25 Mg PO 09/02/17 23:12 25 mg Q6HPRN PRN Administration NAUSEA Simvastatin 10 mg 08/03/17 23:30 08/06/17 21:42 Zocor 10mg PO 09/02/17 23:29 10 mg HS [facility] Administration Triamcinolone Acetonide 40 mg 08/07/17 01:38 08/07/17 02:07 Kenalog-40 IM 08/07/17 01:39 40 mg 1XONLY ONE Administration Discontinued Medications Generic Name Dose Route Start Last Admin Trade Name Freq PRN Reason Stop Dose Admin Albuterol/Ipratropium Confirm 08/03/17 21:19 Duoneb 0.5-3 Mg/3 Ml Neb Administered 08/03/17 21:20 Dose 3 ml IH .STK-MED ONE Bupivacaine HCl Confirm 08/07/17 00:43 Marcaine 0.5% Sdv 10 Ml Administered 08/07/17 00:44 Dose 10 ml .ROUTE .STK-MED ONE Lidocaine HCl Confirm 08/07/17 00:34 Xylocaine 1% Hcl 20 Ml Mdv Administered 08/07/17 00:35 Dose 20 ml .ROUTE .STK-MED ONE Methylprednisolone Sodium Succinate 40 mg 08/03/17 20:45 08/03/17 21:01 Solu-Medrol 40 Mg IV 09/02/17 20:44 40 mg Q8H [facility] Administration Intake & Output (Last 24 hours) 08/04/17 08/05/17 08/06/17 08/07/17 11:59 11:59 11:59 11:59 Intake Total 1426 3519 2176 3245 Output Total 850 1600 3300 3000 Balance 576 5269 -1123 245 Weight 64.229 kg 64.229 kg Microbiology Results (Last 24 hours) 08/07/17 01:30 Knee - Right Gram Stain - Pending 08/07/17 01:30 Knee - Right Miscellaneous Culture - Pending Laboratory Results (Last 24 hours) 08/06/17 08/06/17 10:15 10:15 WBC 12.0 H RBC 3.69 L Hgb 11.1 L Hct 37.0 MCV 100.3 H MCH 30.0 MCHC 30.0 L RDW 13.6 Plt Count 212 MPV 9.9 H Sodium 141 Potassium 4.2 Chloride 107 Carbon Dioxide 26.5 Anion Gap 11.4 BUN 17 Creatinine 0.79 Estimated GFR > 60 Glucose 205 H Calcium 8.4 L Total Bilirubin 0.10 L AST 23 ALT 46 Alkaline Phosphatase 99 Serum Total Protein 6.4 Albumin 2.8 L Orders (Last 24 hours) Category Date Time Status Body Fluid Cell Count TMF Routine Lab 08/07/17 02:00 Received CBC Urgent Lab 08/06/17 10:15 Completed CMP Urgent Lab 08/06/17 10:15 Completed CULTURE,OTHER Routine Lab 08/07/17 01:30 Received Crystals,Body Fluid Routine Lab 08/07/17 02:00 Received Uric Acid, Body fluid Routine Lab 08/07/17 02:00 Received Bupivacaine HCl 0.5% 10 ml [Marcaine 0.5% SDV 10 ML] Med 08/07/17 00:43 Discontinued 10 ml .ROUTE .STK-MED ONE Bupivacaine HCl 0.5% 10 ml [Marcaine 0.5% SDV 10 ML] Med 08/07/17 01:41 Once 10 ml IJ STAT ONE Lidocaine HCl 1% 20 ml Mdv [Xylocaine 1% HCl 20 ml Med 08/07/17 00:34 Discontinued Mdv] 20 ml .ROUTE .STK-MED ONE Lidocaine HCl 1% 20 ml Mdv [Xylocaine 1% HCl 20 ml Med 08/08/17 05:00 Ordered Mdv] 20 ml IJ PRN PRN Triamcinolone Acetonide 40 mg* [Kenalog-40] Med 08/07/17 01:38 Once 40 mg IM 1XONLY ONE Flutter Therapy QID RT 08/06/17 19:00 Active Qualify for Home Oxygen TODAY RT 08/06/17 15:48 Active Patient Care Notes (Last 24 hours) 08/07/17 04:06 Nursing Note by Elizabeth Quiroz Dr. consulted with pt regarding rt knee, aspirated sma fluid from knee, sample sent for culture, cell count, uric acid, and crystal study, pt to f/u in office in 1-2 weeks. Initialized on 08/07/17 04:06 - END OF NOTE 08/06/17 16:54 Respiratory Note by Elizabeth Chavira PT'S O2 SAT ON ROOM AIR WHILE AT REST WAS 93%. PT'S O2 SAT ON ROOM AIR WHILE WALKING WAS 87%. PT'S O2 SAT WHILE WALKING WITH 2LPM OXYGEN VIA NASAL CANNULA WAS 94%. NURSE NOTIFIED. Initialized on 08/06/17 16:54 - END OF NOTE 08/06/17 13:59 Nursing Note by Paulina Anderson pt has been asked to take a walk multiple times. pt states she is very tired today and will walk later. Initialized on 08/06/17 13:59 - END OF NOTE 08/06/17 11:00 (created 08/06/17 13:34) Case Management Note by Monica Colmenares REVIEWED DISCHARGE PLAN, CONTINUES TO PLAN TO RETURN HOME TO PRE EPISODIC LEVEL OF [facility]. INDEPENDENT WITH ALL ADL'S. AWAIT DR. LAINEZ TO ROUND AND DR. TOMLINSON TO CONSULT. DENIES ADDNL NEEDS AT PRESENT. WILL FOLLOW. Initialized on 08/06/17 13:34 - END OF NOTE - Vitals & Intake/Output Vital Signs: Vital Signs Temperature 98.8 F 08/07/17 04:00 Pulse Rate 110 H 08/07/17 04:00 Respiratory Rate 20 08/07/17 04:00 Blood Pressure 144/77 08/07/17 04:00 O2 Sat by Pulse Oximetry 94 L 08/07/17 04:00 Oxygen-Last Documented O2 Percentage 2 Liters = 28% Intake & Output: Intake & Output 12/27/08/05/17 08/06/17 08/07/17 11:59 11:59 11:59 11:59 Intake Total 1424 8612 7691 7547 Output Total 727 3468 9804 3000 Balance 576 1919 -1124 245 Weight 64.229 kg 64.229 kg - Lab Result Diagrams: 08/06/17 10:15 08/06/17 10:15 Lab Results-Last 24 Hrs: Accuchecks Date 08/06/17 Date 08/06/17 Date 08/06/17 Date 08/06/17 Time 21:30 Accucheck Value: 121 Accucheck Value: 107 Accucheck Value: 127 Accucheck Value: 127 Lab Results-Last 24 Hours 08/06/17 08/06/17 Range/Units 10:15 10:15 WBC 12.0 H (4.0-10.5) K/mm3 RBC 3.69 L (4.1-5.4) M/mm3 Hgb 11.1 L (12.0-16.0) gm/dl Hct 37.0 (35-47) % MCV 100.3 H (78-100) fl MCH 30.0 (26-32) pg MCHC 30.0 L (32-36) g/dl RDW 13.6 (11.5-14.0) % Plt Count 212 (150-450) K/mm3 MPV 9.9 H (6-9.5) fl Sodium 141 (136-145) mEq/L Potassium 4.2 (3.5-5.1) mEq/L Chloride 107 (98-107) mEq/L Carbon Dioxide 26.5 (21-32) mEq/L Anion Gap 11.4 (5-15) MEQ/L BUN 17 (9-20) mg/dL Creatinine 0.79 (0.55-1.30) mg/dl Estimated GFR > 60 ML/MIN Glucose 205 H (70-110) MG/DL Calcium 8.4 L (8.5-10.1) mg/dL Total Bilirubin 0.10 L (0.2-1.0) mg/dL AST 23 (15-37) U/L ALT 46 (12-78) U/L Alkaline Phosphatase 99 (46-116) U/L Serum Total Protein 6.4 (6.4-8.2) gm/dL Albumin 2.8 L (3.4-5.0) g/dL Micro Results-Entire Visit: Accuchecks Date 08/06/17 Date 08/06/17 Date 08/06/17 Date 08/06/17 Time 21:30 Accucheck Value: 121 Accucheck Value: 107 Accucheck Value: 127 Accucheck Value: 127 - Procedures and Test Procedures and Tests throughout Hospitalization: Therapy Orders & Screens 08/03/17 19:00 Respiratory Nebulizer UD Comment: MALINA MARTINEZD Diagnosis: COPD EXACERBATION 08/03/17 20:34 EKG STAT Comment: Diagnosis: COPD EXACERBATION Respiratory Therapy Consult ROUTINE Comment: Reason For Exam: Diagnosis: COPD EXACERBATION 08/04/17 00:25 Oxygen NASAL CANNULA 2 lpm Comment: Diagnosis: COPD EXACERBATION Respiratory Nebulizer Comment: MALINA MARTINEZDPRN FOR SOB/WHEEZING Diagnosis: COPD EXACERBATION 08/06/17 15:48 Qualify for Home Oxygen TODAY Comment: Diagnosis: COPD EXACERBATION, UTI 08/06/17 19:00 Flutter Therapy QID Comment: QID Diagnosis: COPD EXACERBATION, UTI Discharge Exam General Appearance: no apparent distress, alert Neurologic Exam: alert, oriented x 3, cooperative, normal mood/affect, nml cerebellar function, sensation nml, No motor deficits Skin Exam: normal color, warm, dry Eye Exam: PERRL, EOMI, eyes nml inspection Ears, Nose, Throat Exam: normal ENT inspection, pharynx normal, moist mucous membranes Neck Exam: normal inspection, non-tender, supple, full range of motion Respiratory Exam: normal breath sounds, lungs clear, No respiratory distress Cardiovascular Exam: regular rate/rhythm, normal heart sounds Gastrointestinal/Abdomen Exam: soft, No tenderness, No mass Extremity Exam: normal inspection, normal range of motion Back Exam: normal inspection, normal range of motion, No CVA tenderness, No vertebral tenderness Pelvic Exam: deferred Rectal Exam: deferred Final Diagnosis/Problem List - Final Discharge Diagnosis/Problem (1) COPD with exacerbation Current Visit: Yes Status: Resolved (2) UTI (urinary tract infection) Current Visit: Yes Status: Resolved (3) History of chronic pancreatitis Current Visit: No Status: Chronic - Discharge Discharge Date: 08/07/17 Disposition: Home, Self-Care Condition: Stable Prescriptions: New Albuterol/Ipratropium 3ml Neb* [DUONEB 0.5-3 MG/3 ml Neb] 3 ml IH QIDRT # 120 ampul.neb Levofloxacin [Levaquin] 500 mg PO DAILY #5 tablet Continue Promethazine HCl 25 mg [Phenergan 25 mg] 25 mg PO Q6H PRN PRN PRN Reason: Nausea Cyclobenzaprine HCl [Flexeril] 10 mg PO UD Loperamide HCl 2 mg [Imodium 2 mg] 2 mg PO QIDPRN PRN PRN Reason: diarrhea Gabapentin 300 mg PO TID Citalopram Hydrobromide 20 mg* [ceLEXa 20 MG] 20 mg PO HS Alprazolam [Xanax] 1 mg PO TID Levothyroxine Sodium 50 Mcg [Synthroid 50 Mcg] 50 mcg PO DAILY Atorvastatin Calcium 10 mg PO HS Non-Formulary Drug [Non-Formulary Item] 0 mg UD Follow up with: STEFANO TOMLINSON [ACTIVE STAFF] - 1 Week BRODERICK LAINEZ MD [Primary Care Provider] - 1 Week Forms: Patient Portal Information
[2017-08-07] MEDS: DUONEB 0.5-3 MG/3 ml Neb IH SCH (06:59)
[2017-08-07 07:34] VITALS: BP 139/69; PULSE 104; O2SAT 99
[2017-08-07] MEDS: Protonix 40MG Tablet PO SCH (10:11)
[2017-08-07] MEDS: XANAX 1 MG PO SCH (10:11)
[2017-08-07] MEDS: NEURONTIN 300 MG PO SCH (10:11)
[2017-08-07] MEDS: TORAdol 10 MG TABLET PO SCH (10:12)
[2017-08-07] MEDS: SYNTHROID 50 MCG PO SCH (10:12)
[2017-08-08] MEDS ORDERED: XYLOCAINE 1% HCL 20 ML MDV IJ PRN (05:00)
[2017-08-08 21:22] LABS: BF Color Red
[2017-08-08 22:20] LABS: Body Fluid Type? Syn Fl; Crystals,Body Fluid Absent
--- NOTE | 2017-08-10 09:54 | CONS ---
CONSULT DATE: 08/07/2017 REASON FOR CONSULT: Right knee pain. HISTORY: The patient is in the hospital for issues related to chronic obstructive pulmonary disease and exacerbation. She has chronic pancreatitis and other intra-abdominal issues, right knee pain which x-rays show degenerative changes without standing films, degenerative changes seen intra-articular on multiple views once again on standing. On exam the patient is full extension but has swelling and ballotable patella and synovial fluid estimated about 20 cc or so, nontender posteriorly and anteriorly and on each side of the midline. IMPRESSION: 1) Right knee synovitis. 2) Degenerative joint disease right knee. 3) Multiple comorbidities. PLAN: Will aspirate the right knee today and inject and send fluid down at least for a cell count if not culture and sensitivities, crystal formation and uric acid level, etc.
--- NOTE | 2017-08-10 10:03 | OP ---
SURGERY DATE/TIME: 08/06/2017 2710 PREOPERATIVE DIAGNOSIS: Right knee synovitis. POSTOPERATIVE DIAGNOSIS: Right knee synovitis. PROCEDURE: Right knee aspiration and injection at bedside. SURGEON: Hemal Spears D.O. STATE GAME WARDEN: None. ANESTHESIA: None. ESTIMATED BLOOD LOSS: None. DESCRIPTION OF PROCEDURE: Under aseptic conditions the patient was betadine swabbed with the patient extended right knee slightly externally rotated. A simple betadine swab followed by about 3 cc of 1% lidocaine injected into the outer wall of the knee and then this was followed about 5 minutes later by aspiration with 18 gauge needle of about 5 to 10 cc of straw-colored fluid with a little bit of blood tinged. It was remanded to the lab for cell count. An injection of 1 cc of Kenalog 4 cc/ml and 3 cc of 0.5% Marcaine was injected into the knee. Well tolerated. The needle removed. Simple dressing applied and ice. Ambulation as tolerated. Follow up within the next few weeks in the office.
--- NOTE | 2017-08-10 12:24 | ECHO ---
Transthoracic echocardiographic examination and color Doppler was done on 08/04/2017. INDICATION: Chronic obstructive pulmonary disease, emphysema, shortness of breath. IMPRESSION: 1) NO DEFINITE REGIONAL WALL MOTION ABNORMALITY. ESTIMATED GLOBAL LEFT VENTRICULAR EJECTION FRACTION OF AROUND 50 TO 60%. 2) TRACE MITRAL REGURGITATION. 3) LEFT VENTRICULAR DIASTOLIC DYSFUNCTION. The left ventricle is visualized and demonstrated adequate motion of all the segments. Estimated global left ventricular ejection fraction around 60 to 70%. There is mild left ventricular hypertrophy. The mitral valve is seen and this opens adequately. There is mild mitral regurgitation. Left atrium is normal. The aortic valve appears to open adequately. The right side chambers are mildly dilated. Tissue Doppler study of the lateral mitral annulus suggests left ventricular diastolic dysfunction.
== END 2017-08-07 11:24 | disposition home or self-care (01) | DRG 191 ==
LOC: MED SURG 09:28 → OBSVTOIN 08-04 09:28
PROVIDERS: ADMIT General Practice; ATTEND General Practice
PROC: 3E0U3BZ Introduction of Anesthetic Agent into Joints, Percutaneous Approach (ICD-10-PCS; principal; 2017-08-06)
PROC: 3E0U33Z Introduction of Anti-inflammatory into Joints, Percutaneous Approach (ICD-10-PCS; 2017-08-06)
DX: J44.1 Chronic obstructive pulmonary disease with (acute) exacerbation (principal); N39.0 Urinary tract infection, site not specified; G90.521 Complex regional pain syndrome I of right lower limb; K21.9 Gastro-esophageal reflux disease without esophagitis; G62.9 Polyneuropathy, unspecified; F41.9 Anxiety disorder, unspecified; M65.88 Other synovitis and tenosynovitis, other site; Z87.19 Personal history of other diseases of the digestive system; Z80.1 Family history of malignant neoplasm of trachea, bronchus and lung; Z80.8 Family history of malignant neoplasm of other organs or systems; Z79.899 Other long term (current) drug therapy
CPT/HCPCS: 36415; 71020; 73560; 80053; 81000; 82962; 83036; 83880; 84560; 85025; 85027; 87070; 87205; 89050; 89060; 93005; 93268; 93306; 94640; 94668; 94760; G0378; J0696; J1650; J2920; J3301; A9270-GY

== ENCOUNTER 2019-03-09 08:13 | Day surgery (SDC) | payer MEDICARE ==
--- NOTE | 2019-03-09 07:51 | HP ---
DATE OF SURGERY: 03/09/2019 ANTICIPATED PROCEDURE: Ventral hernia with mesh. HISTORY OF PRESENT ILLNESS: The patient has symptomatic ventral hernia that is located 3 inches above the umbilicus presents for repair. Ultrasound positive. Seen and examined. Procedure discussed in detail and wished to proceed PAST MEDICAL HISTORY: ALLERGIES: NSAID. MEDICATIONS: Flexeril, Xanax, atorvastatin, gabapentin. Oxygen. PAST SURGICAL HISTORY: Multiple. SOCIAL HISTORY: Negative. FAMILY HISTORY: Negative. REVIEW OF SYSTEMS: Pancreatitis with pancreatic divisum. PHYSICAL EXAMINATION: VITAL SIGNS: Normal. CHEST: Clear. COR: Regular. IMPRESSION: Ventral hernia. PLAN: Repair.
[~2019-03-09 08:13] MED LIST: KEFZOL 1 GM ONE; Lactated Ringers 1,000 ML IV ONE; Sensorcaine 0.25% 10 ML ONE
[2019-03-09] MEDS ORDERED: Lactated Ringers 0 ML IV ONE (08:58)
--- NOTE | 2019-03-09 08:58 | XRAY ---
Indication: Cough. COPD. Comparison: August 03, 2017. Portable chest again demonstrates normal heart, lungs, and bony thorax with incidental calcified granulomas.
[2019-03-09] MEDS ORDERED: Lactated Ringers 1,000 ML IV SCH (09:00)
[2019-03-09 09:20] VITALS: BP 136/92
[2019-03-09 09:30] LABS: ALKALINE PHOSPHATASE 119 U/L (38-126); BLOOD UREA NITROGEN 10 mg/dL (7-17); CHLORIDE 105 mmol/L (98-107); Calcium 8.8 mg/dL (8.4-10.2); Carbon Dioxide 30 mmol/L (22-30); Creatinine 1 0.66 mg/dL (0.52-1.04); Glucose 106 mg/dL (74-106); Potassium 3.6 mmol/L (3.5-5.1); SGOT/AST 52 U/L (14-36); SGPT/ALT 64 U/L (0-35); SODIUM 139 mmol/L (137-145); Total Protein 7.3 g/dL (6.3-8.2)
[2019-03-09] MEDS ORDERED: CEFAZOLIN 2 GM-D5W BAG** 2 GM/50 ML ML IV SCH (10:30)
[2019-03-09] MEDS ORDERED: DUONEB 0.5-3 MG/3 ml Neb IH ONE (10:33)
[2019-03-09 10:52] VITALS: PULSE 88; O2SAT 97
== END 2019-03-09 10:55 | disposition home or self-care (01) ==
LOC: SDC 08:13
PROVIDERS: ATTEND Surgery
DX: Z53.09 Procedure and treatment not carried out because of other contraindication (principal); K43.9 Ventral hernia without obstruction or gangrene
CPT/HCPCS: 36415; 71045; 80053; 93005; 94150; 94250; 94640; J0690; A9270-GY

== ENCOUNTER 2019-05-11 16:13 | Observation (INO) | payer MEDICARE ==
--- NOTE | 2019-05-11 17:32 | ERPHSYRPT ---
- History of Present Illness Time Seen by Provider: 05/11/19 17:20 Historian: patient, family Exam Limitations: no limitations Physician History: 54 y/o white female with h/o copd on 2l nc oxygen and pancreatic divisum with recurrent pancreatitis presents with a few day h/o abd pain. pt has a dilaudid pain pump no basal rate. pt quit smoking for a year but began smoking last week after her . pt has had associated n/v/d. Timing/Duration: day(s) (3), worse Quality: burning, pressure Abdominal Pain Onset Location: generalized abdomen Pain Radiation: no radiation Severity of Pain-Max: moderate Severity of Pain-Current: moderate Modifying Factors: Improves With: vomiting Associated Symptoms: nausea, vomiting Previous symptoms: same symptoms as today Allergies/Adverse Reactions: NSAIDS (Non-Steroidal Anti-Inflamma Allergy (Mild, Verified 05/11/19 17:37) unsure of reaction doxycycline Allergy (Verified 05/11/19 17:37) Tightness of Throat Home Medications: Cyclobenzaprine HCl [Flexeril] 10 mg PO UD 08/14/13 [History] Alprazolam [Xanax] 1 mg PO TID 12/27/14 [History] Gabapentin 300 mg PO TID 12/27/14 [History] Loperamide HCl 2 mg [Imodium 2 mg] 2 mg PO QIDPRN PRN 12/27/14 [History] Levothyroxine Sodium 50 Mcg [Synthroid 50 Mcg] 75 mcg PO DAILY 07/13/16 [ History] Non-Formulary Drug [Non-Formulary Item] 0 mg UD 08/03/17 [History] Albuterol Sulfate [Ventolin Hfa] 18 gm IH QID 02/21/19 [History] Albuterol/Ipratropium 3ml Neb* [DUONEB 0.5-3 MG/3 ml Neb] 2.5 mg IH QIDRT [History] Atorvastatin Calcium [Lipitor] 10 mg PO DAILY 02/21/19 [History] Fluticasone/Vilanterol [Breo Ellipta 100-25 Mcg INH] 1 puff IH DAILY 02/21/19 [ History] Oxybutynin Chloride Xl 5 mg [Ditropan XL 5 MG] 5 mg PO DAILY 02/21/19 [ History] Hx Tetanus, Diphtheria Vaccination/Date Given: Yes Hx Influenza Vaccination/Date Given: No Hx Pneumococcal Vaccination/Date Given: No - Review of Systems Constitutional: No Symptoms Eyes: No Symptoms Ears, Nose, & Throat: No Symptoms Respiratory: No Symptoms Cardiac: No Symptoms Abdominal/Gastrointestinal: Abdominal Pain, Nausea, Vomiting, Diarrhea Genitourinary Symptoms: No Dysuria, No Frequency, No Hematuria, No Urgency, No Flank Pain Musculoskeletal: No Symptoms Skin: No Symptoms Neurological: No Symptoms Psychological: No Symptoms Endocrine: No Symptoms Hematologic/Lymphatic: No Symptoms Immunological/Allergic: No Symptoms All Other Systems: Reviewed and Negative - Past Medical History Pertinent Past Medical History: Yes Neurological History: No Pertinent History ENT History: No Pertinent History Cardiac History: No Pertinent History Respiratory History: Asthma, Bronchitis, COPD, Emphysema, Other Endocrine Medical History: Hypothyroidism Musculoskeletal History: No Pertinent History GI Medical History: Polyps, Other, Pancreatitis History: Other Psycho-Social History: Anxiety, Depression, Other Female Reproductive Disorders: Cervical Cancer, Ovarian Cancer Other Medical History: PANCREATIC DIVISION, CHRONIC PAIN. PAIN PUMP FOR PANCREATITIS - Past Surgical History Past Surgical History: Yes Neuro Surgical History: No Pertinent History Cardiac: No Pertinent History Respiratory: No Pertinent History Gastrointestinal: Exploratory Laparoscopy, Pancreatic Surgery, Cholecystectomy Genitourinary: Other Musculoskeletal: Orthopedic Surgery Female Surgical History: Hysterectomy Other Surgical History: 16 different abdominal surgeries, reconstructions bile port, 2 Feeding tubes--removed. 3 ERCP, PORT PLACEDand removed. 2 BLADDER SURGERIES. ELBOW SURGERY AND RIGHT KNEE SCOPE. - Social History Smoking Status: Former smoker How long have you smoked: 30 years Exposure to second hand smoke: Yes Drug Use: none Patient Lives Alone: No - Nursing Vital Signs Nursing Vital Signs: Initial Vital Signs Pulse Rate 91 H 05/11/19 17:30 Respiratory Rate 24 05/11/19 17:30 Blood Pressure 156/88 05/11/19 17:30 O2 Sat by Pulse Oximetry 92 L 05/11/19 17:30 Pain Scale Pain Intensity 9 - Physical Exam General Appearance: mild distress, alert, anxiety Eye Exam: PERRL/EOMI, eyes nml inspection Ears, Nose, Throat Exam: normal ENT inspection, moist mucous membranes Neck Exam: normal inspection, non-tender, supple, full range of motion Respiratory Exam: normal breath sounds, lungs clear, airway intact, No chest tenderness, No respiratory distress Cardiovascular Exam: regular rate/rhythm, normal heart sounds, normal peripheral pulses Gastrointestinal/Abdomen Exam: soft, normal bowel sounds, tenderness ( generalized), guarding, No rebound Pelvic Exam: not done Rectal Exam: not done Back Exam: normal inspection, normal range of motion, No CVA tenderness, No vertebral tenderness Extremity Exam: normal inspection, normal range of motion, pelvis stable Neurologic Exam: alert, oriented x 3, cooperative, 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-XII nml as tested Skin Exam: normal color, warm, dry Lymphatic Exam: No adenopathy SpO2 Interpretation: normal O2 Delivery: Room Air - Course Nursing assessment & vital signs reviewed: Yes Ordered Tests: Active Orders 24 hr Category Date Time Status IV Insertion STAT Care 05/11/19 17:41 Active ABDOMEN AND PELVIS W/0 CONTRAS [CT] Stat Exams 05/11/19 17:41 Taken AMYLASE Stat Lab 05/11/19 18:05 Completed CBC W DIFF Stat Lab 05/11/19 18:05 Completed CMP Stat Lab 05/11/19 18:05 Completed LIPASE Stat Lab 05/11/19 18:05 Completed Lactic Acid Stat Lab 05/11/19 18:10 Completed Lactic Acid Stat Lab 05/11/19 20:42 Completed UA W/RFX UR CULTURE Stat Lab 05/11/19 18:15 Completed Transfer Order Routine Transfer 05/11/19 Ordered Medication Summary Generic Name Dose Route Start Last Admin Trade Name Freq PRN Reason Stop Dose Admin Potassium Chloride 20 meq in 100 mls @ 50 mls/hr 05/11/19 23:11 05/11/19 23: 16 Potassium Chloride 20 Meq In Water 100ml IV 05/12/19 01:10 50 mls/hr STAT ONE Administration Discontinued Medications Generic Name Dose Route Start Last Admin Trade Name Freq PRN Reason Stop Dose Admin Hydromorphone HCl 0.5 mg 05/11/19 17:41 05/11/19 18:02 Hydromorphone 1 Mg/Ml Ampule IV 05/11/19 17:42 0.5 mg STAT ONE Administration Hydromorphone HCl Confirm 05/11/19 17:57 Hydromorphone 1 Mg/Ml Ampule Administered 05/11/19 17:58 Dose 1 mg .ROUTE .STK-MED ONE Sodium Chloride 1,000 mls @ 999 mls/hr 05/11/19 17:41 05/11/19 18:01 Sodium Chloride 0.9% 1000 Ml IV 05/11/19 18:41 999 mls/hr .Q1H1M STA Administration Sodium Chloride Confirm 05/11/19 17:57 Sodium Chloride 0.9% 1000 Ml Administered 05/11/19 17:58 Dose 1,000 mls @ ud .ROUTE .STK-MED ONE Potassium Chloride Confirm 05/11/19 23:15 Potassium Chloride 20 Meq In Water 100ml Administered 05/11/19 23:16 Dose 100 mls @ ud IV .STK-MED ONE Sodium Chloride Confirm 05/11/19 23:36 Sodium Chloride 0.9% 1000 Ml Administered 05/11/19 23:37 Dose 1,000 mls @ ud .ROUTE .STK-MED ONE Ondansetron HCl 4 mg 05/11/19 17:41 05/11/19 18:02 Zofran 4 Mg/2 Ml Vial IV 05/11/19 17:42 4 mg STAT ONE Administration Ondansetron HCl Confirm 05/11/19 17:56 Zofran 4 Mg/2 Ml Vial Administered 05/11/19 17:57 Dose 4 mg .ROUTE .STK-MED ONE Lab/Rad Data: Laboratory Result Diagrams 05/11/19 18:05 05/11/19 18:05 Laboratory Results 05/11/19 05/11/19 05/11/19 Range/Units 20:42 18:15 18:10 WBC (4.0-10.5) K/mm3 RBC (4.1-5.4) M/mm3 Hgb (12.0-16.0) gm/dl Hct (35-47) % MCV (78-100) fl MCH (26-32) pg MCHC (32-36) g/dl RDW (11.5-14.0) % Plt Count (150-450) K/mm3 MPV (6-9.5) fl Gran % (36.0-66.0) % Eos # (Auto) (0-0.5) Absolute Lymphs (auto) (1.0-4.6) Absolute Monos (auto) (0.0-1.3) Lymphocytes % (24.0-44.0) % Monocytes % (0.0-12.0) % Eosinophils % (0.00-5.0) % Basophils % (0.0-0.4) % Absolute Granulocytes (1.4-6.9) Basophils # (0-0.4) Sodium (137-145) mmol/L Potassium (3.5-5.1) mmol/L Chloride (98-107) mmol/L Carbon Dioxide (22-30) mmol/L Anion Gap (5-15) MEQ/L BUN (7-17) mg/dL Creatinine (0.52-1.04) mg/dL Estimated GFR ML/MIN Glucose (74-106) mg/dL Lactic Acid 0.8 2.0 (0.4-2.0) Calcium (8.4-10.2) mg/dL Total Bilirubin (0.2-1.3) mg/dL AST (14-36) U/L ALT (0-35) U/L Alkaline Phosphatase (38-126) U/L Serum Total Protein (6.3-8.2) g/dL Albumin (3.5-5.0) g/dL Amylase (30-110) U/L Lipase (23-300) U/L Urine Color NASH (YELLOW) Urine Appearance SLIGHTLY CLOUDY (CLEAR) Urine pH 5.0 (5-6) Ur Specific [place] 1.025 (1.005-1.025) Urine Protein NEGATIVE (Negative) Urine Ketones NEGATIVE (NEGATIVE) Urine Blood SMALL (0-5) Jaret/ul Urine Nitrite NEGATIVE (NEGATIVE) Urine Bilirubin NEGATIVE (NEGATIVE) Urine Urobilinogen 2 (0-1) mg/dL Ur Leukocyte Esterase NEGATIVE (NEGATIVE) Urine WBC (Auto) 3-5 (0-5) /HPF Urine RBC (Auto) 0-2 (0-2) /HPF U Epithel Cells (Auto) MODERATE (FEW) /HPF Urine Bacteria (Auto) NONE (NEGATIVE) /HPF Urine Mucus (Auto) SLIGHT (NEGATIVE) /HPF Urine Culture Reflexed NO (NO) Urine Glucose NEGATIVE (NEGATIVE) mg/dL 05/11/19 05/11/19 Range/Units 18:05 18:05 WBC 5.6 (4.0-10.5) K/mm3 RBC 4.84 (4.1-5.4) M/mm3 Hgb 14.8 (12.0-16.0) gm/dl Hct 46.4 (35-47) % MCV 95.9 (78-100) fl MCH 30.6 (26-32) pg MCHC 31.9 L (32-36) g/dl RDW 14.4 H (11.5-14.0) % Plt Count 337 (150-450) K/mm3 MPV 10.3 H (6-9.5) fl Gran % 59.2 (36.0-66.0) % Eos # (Auto) 0.18 (0-0.5) Absolute Lymphs (auto) 1.34 (1.0-4.6) Absolute Monos (auto) 0.70 (0.0-1.3) Lymphocytes % 24.1 (24.0-44.0) % Monocytes % 12.6 H (0.0-12.0) % Eosinophils % 3.2 (0.00-5.0) % Basophils % 0.9 (0.0-0.4) % Absolute Granulocytes 3.30 (1.4-6.9) Basophils # 0.05 (0-0.4) Sodium 142 (137-145) mmol/L Potassium 3.1 L (3.5-5.1) mmol/L Chloride 95 L (98-107) mmol/L Carbon Dioxide 36 H (22-30) mmol/L Anion Gap 13.1 (5-15) MEQ/L BUN 13 (7-17) mg/dL Creatinine 0.68 (0.52-1.04) mg/dL Estimated GFR > 60.0 ML/MIN Glucose 116 H (74-106) mg/dL Lactic Acid (0.4-2.0) Calcium 10.1 (8.4-10.2) mg/dL Total Bilirubin 0.60 (0.2-1.3) mg/dL AST 57 H (14-36) U/L ALT 47 H (0-35) U/L Alkaline Phosphatase 105 (38-126) U/L Serum Total Protein 8.2 (6.3-8.2) g/dL Albumin 4.1 (3.5-5.0) g/dL Amylase 75 (30-110) U/L Lipase 189 (23-300) U/L Urine Color (YELLOW) Urine Appearance (CLEAR) Urine pH (5-6) Ur Specific [place] (1.005-1.025) Urine Protein (Negative) Urine Ketones (NEGATIVE) Urine Blood (0-5) Jaret/ul Urine Nitrite (NEGATIVE) Urine Bilirubin (NEGATIVE) Urine Urobilinogen (0-1) mg/dL Ur Leukocyte Esterase (NEGATIVE) Urine WBC (Auto) (0-5) /HPF Urine RBC (Auto) (0-2) /HPF U Epithel Cells (Auto) (FEW) /HPF Urine Bacteria (Auto) (NEGATIVE) /HPF Urine Mucus (Auto) (NEGATIVE) /HPF Urine Culture Reflexed (NO) Urine Glucose (NEGATIVE) mg/dL - Progress Progress: improved, pain not gone completely, re-examined Progress Note: 05/11/19 20:09 pts sister states pt is not being honest with us. pt has not been vomitng and has not been having diarrhea. pts spouse did recently and they have been seeing a relapse of her drug abuse since her husbands . 05/11/19 23:[address] lainez. i reviewed pt hx, condition, labs and ct scan results. he accepts pt for observation placement Discussed with .: Tripp Counseled pt/family regarding: lab results, diagnosis, need for follow-up, rad results - Departure Departure Disposition: Observation Clinical Impression: Abdominal pain, Vomiting, Diarrhea, Hypokalemia due to excessive gastrointestinal loss of potassium Condition: Stable Critical Care Time: No Referrals: BRODERICK LAINEZ MD [Primary Care Provider] -
[2019-05-11] MEDS ORDERED: Zofran 4 MG/2 ML VIAL IV ONE (17:41)
[2019-05-11] MEDS ORDERED: Sodium Chloride 0.9% 1000 ML 1,000 ML IV STA (17:41)
[2019-05-11] MEDS ORDERED: Hydromorphone 1 mg/ml Ampule IV ONE (17:41)
[2019-05-11] MEDS ORDERED: Zofran 4 MG/2 ML VIAL ONE (17:56)
[2019-05-11] MEDS ORDERED: Hydromorphone 1 mg/ml Ampule ONE (17:57)
[2019-05-11] MEDS ORDERED: Sodium Chloride 0.9% 1000 ML 1,000 ML ONE ×2 (17:57→23:36)
[2019-05-11 18:22] LABS: Appearance SLIGHTLY CLOUDY (CLEAR); Bilirubin NEGATIVE (NEGATIVE); Blood SMALL Ery/ul (0-5); Epithelial Cells MODERATE /HPF (FEW); Glucose NEGATIVE (NEGATIVE); Ketones NEGATIVE (NEGATIVE); Leukocyte Esterase NEGATIVE (NEGATIVE); Mucus SLIGHT /HPF (NEGATIVE); Nitrite NEGATIVE (NEGATIVE); Protein,Urine Dip NEGATIVE (Negative); RBC 0-2 /HPF (0-2); Specific Gravity 1.025 (1.005-1.025); Urobilinogen 2 mg/dL (0-1)
[2019-05-11 18:24] LABS: ALBUMIN 4.1 g/dL (3.5-5.0); ALKALINE PHOSPHATASE 105 U/L (38-126); AMYLASE 75 U/L (30-110); ANION GAP 13.1 MEQ/L (5-15); BASOPHIL % 0.9 % (0.0-0.4); BLOOD UREA NITROGEN 13 mg/dL (7-17); Basophil (Absolute #) 0.05 (0-0.4); CHLORIDE 95 mmol/L (98-107); Calcium 10.1 mg/dL (8.4-10.2); Carbon Dioxide 36 mmol/L (22-30); Creatinine 1 0.68 mg/dL (0.52-1.04); Eosinophil % 3.2 % (0.00-5.0); Eosinophil (Absolute #) 0.18 (0-0.5); Glucose 116 mg/dL (74-106); Hematocrit 46.4 % (35-47); Hemoglobin 14.8 gm/dl (12.0-16.0); LIPASE 189 U/L (23-300); Lymphocyte (Absolute #) 1.34 (1.0-4.6); Lymphocytes % 24.1 % (24.0-44.0); Mean Cell Volume 95.9 fl (78-100); Mean Corpuscular Hemoglobin 30.6 pg (26-32); Mean Corpuscular Hgb Concent. 31.9 g/dl (32-36); Mean Platelet Volume 10.3 fl (6-9.5); Monocytes % 12.6 % (0.0-12.0); Neutrophil % 59.2 % (36.0-66.0); Platelet Count 337 K/mm3 (150-450); Potassium 3.1 mmol/L (3.5-5.1); Red Blood Count 4.84 M/mm3 (4.1-5.4); Red Cell Distribution Width 14.4 % (11.5-14.0); SGOT/AST 57 U/L (14-36); SGPT/ALT 47 U/L (0-35); SODIUM 142 mmol/L (137-145); Total Protein 8.2 g/dL (6.3-8.2); White Blood Count 5.6 K/mm3 (4.0-10.5)
[2019-05-11] MEDS ORDERED: POTASSIUM CHLORIDE 20 mEq IN WATER 100ML 20 MEQ/100 ML BAG IV ONE (23:11)
[2019-05-11] MEDS ORDERED: POTASSIUM CHLORIDE 20 mEq IN WATER 100ML 100 ML IV ONE (23:15)
[2019-05-12] MEDS ORDERED: TYLENOL 325 MG PO PRN (00:29)
[2019-05-12] MEDS ORDERED: DILAUDID 2 MG INJECTION IV PRN (00:29)
[2019-05-12] MEDS ORDERED: Zofran 4 MG/2 ML VIAL IV PRN (00:29)
[2019-05-12 05:02] LABS: Absolute Neutrophil Ct (ANC) 3.55 (1.4-6.9); BASOPHIL % 0.5 % (0.0-0.4); Basophil (Absolute #) 0.03 (0-0.4); Eosinophil % 2.6 % (0.00-5.0); Eosinophil (Absolute #) 0.14 (0-0.5); Hematocrit 40.1 % (35-47); Hemoglobin 12.4 gm/dl (12.0-16.0); Lymphocyte (Absolute #) 1.12 (1.0-4.6); Lymphocytes % 20.4 % (24.0-44.0); Mean Cell Volume 97.8 fl (78-100); Mean Corpuscular Hemoglobin 30.2 pg (26-32); Mean Corpuscular Hgb Concent. 30.9 g/dl (32-36); Mean Platelet Volume 10.2 fl (6-9.5); Monocyte (Absolute #) 0.65 (0.0-1.3); Monocytes % 11.8 % (0.0-12.0); Neutrophil % 64.7 % (36.0-66.0); Platelet Count 296 K/mm3 (150-450); Red Cell Distribution Width 14.4 % (11.5-14.0); White Blood Count 5.5 K/mm3 (4.0-10.5)
[2019-05-12 05:11] LABS: ALBUMIN 3.3 g/dL (3.5-5.0); ALKALINE PHOSPHATASE 81 U/L (38-126); ANION GAP 8.7 MEQ/L (5-15); BLOOD UREA NITROGEN 11 mg/dL (7-17); CHLORIDE 102 mmol/L (98-107); Calcium 9.6 mg/dL (8.4-10.2); Carbon Dioxide 35 mmol/L (22-30); Creatinine 1 0.67 mg/dL (0.52-1.04); Glucose 110 mg/dL (74-106); SGOT/AST 48 U/L (14-36); SGPT/ALT 37 U/L (0-35); SODIUM 141 mmol/L (137-145); Total Protein 6.7 g/dL (6.3-8.2)
[2019-05-12 05:14] LABS: Potassium 4.3 mmol/L (3.5-5.1)
[2019-05-12] MEDS ORDERED: DUONEB 0.5-3 MG/3 ml Neb IH ONE (08:37)
--- NOTE | 2019-05-12 08:49 | XRAY ---
Indication: Nausea, vomiting, weakness, and loss of appetite. History pancreatitis. Multiple contiguous axial images obtained through the abdomen and pelvis without contrast as ordered. Comparison: December 25, 2014. Lung bases again demonstrates right posterior gutter calcified granuloma. No infiltrate or effusion. Heart is not enlarged. New mid anterior abdomen pain pump produces beam artifact. Noncontrasted stomach and bowel loops appear grossly nonobstructed. Normal appendix. Again previous cholecystectomy and hysterectomy with new mild pneumobilia. Stable fatty liver, faint chronic pancreatitis calcifications, calcified splenic granulomas, and left adrenal adenoma. Remaining liver, pancreas, spleen, adrenal glands, kidneys, ureters, and bladder appear unremarkable for noncontrast exam. Again mild scattered aortoiliac calcifications without AAA. Osseous structures intact. New remnant epidural lead/catheter. No ventral or inguinal hernias. Impression: 1. New pain pump producing beam artifact. 2. Again cholecystectomy with new pneumobilia. 3. Stable fatty liver, chronic pancreatitis calcifications, left adrenal adenoma, and evidence for old granulomatous disease. 4. No acute intra-abdominal/pelvic abnormalities on this noncontrast exam. CT DI 11.09
--- NOTE | 2019-05-12 09:22 | PCM.SSS ---
History of Present Illness - Chief Complaint Chief Complaint: hypokalemia, vomiting for 1-2 days History of Present Illness: is a 54 y/o white female with h/o copd on 2l nc oxygen and pancreatic divisum with recurrent pancreatitis presents with a few day h/o abd pain. pt has a dilaudid pain pump no basal rate. pt quit smoking for a year but began smoking last week after her . pt has had associated n/v/d. Timing/Duration: day(s) (3), worse Quality: burning, pressure Abdominal Pain Onset Location: generalized abdomen Pain Radiation: no radiation Severity of Pain-Max: moderate Severity of Pain-Current: moderate Modifying Factors: Improves With: vomiting Associated Symptoms: nausea, vomiting Previous symptoms: same symptoms as today - Review of Systems Constitutional: No Fever, No Chills Eyes: No Symptoms Ears, Nose, & Throat: No Symptoms Respiratory: No Cough, No Short Of Breath Cardiac: No Chest Pain, No Edema, No Syncope Abdominal/Gastrointestinal: No Abdominal Pain, No Nausea, No Vomiting, No Diarrhea Genitourinary Symptoms: No Dysuria Musculoskeletal: No Back Pain, No Neck Pain Skin: No Rash Neurological: No Dizziness, No Focal Weakness, No Sensory Changes Psychological: No Symptoms Endocrine: No Symptoms Hematologic/Lymphatic: No Symptoms Immunological/Allergic: No Symptoms Medications & Allergies Home Medications: Home Medication List Cyclobenzaprine HCl [Flexeril] 10 mg PO UD 08/14/13 [History Confirmed 05/12/19] Alprazolam [Xanax] 1 mg PO TID 12/27/14 [History Confirmed 05/12/19] Gabapentin 300 mg PO TID 12/27/14 [History Confirmed 05/12/19] Levothyroxine Sodium 50 Mcg [Synthroid 50 Mcg] 75 mcg PO DAILY 07/13/16 [ History Confirmed 05/12/19] Non-Formulary Drug [Non-Formulary Item] 0 mg UD 08/03/17 [History Confirmed 11/25] Albuterol Sulfate [Ventolin Hfa] 18 gm IH QID 02/21/19 [History Confirmed ] Albuterol/Ipratropium 3ml Neb* [DUONEB 0.5-3 MG/3 ml Neb] 2.5 mg IH QIDRT [History Confirmed 05/11/19] Atorvastatin Calcium [Lipitor] 10 mg PO DAILY 02/21/19 [History Confirmed ] Fluticasone/Vilanterol [Breo Ellipta 100-25 Mcg INH] 1 puff IH DAILY 02/21/19 [ History Confirmed 05/11/19] Oxybutynin Chloride Xl 5 mg [Ditropan XL 5 MG] 5 mg PO DAILY 02/21/19 [ History Confirmed 05/12/19] Allergies/Adverse Reactions: Allergies Allergy/AdvReac Type Severity Reaction Status Date / Time NSAIDS (Non-Steroidal Allergy Mild Verified 05/11/19 17:37 Anti-Inflamma doxycycline Allergy Tightness Verified 05/11/19 17:37 of Throat - Past Medical History Past Medical History: Yes Neurological History: No Pertinent History ENT History: No Pertinent History Cardiac History: No Pertinent History Respiratory History: Asthma, Bronchitis, COPD, Emphysema, Other Endocrine Medical History: Hypothyroidism Musculoskelatal History: No Pertinent History GI Medical History: Polyps, Other, Pancreatitis History: Other Pyscho-Social History: Anxiety, Depression, Other Reproductive Disorders: Cervical Cancer, Ovarian Cancer Comment: PANCREATIC DIVISION, CHRONIC PAIN. PAIN PUMP FOR PANCREATITIS - Female History Hx Last Menstrual Period: 1988 Are you now?: No - Past Surgical History Past Surgical History: Yes Neuro Surgical History: No Pertinent History Cardiac History: No Pertinent History Respiratory Surgery: No Pertinent History GI Surgical History: Cholecystectomy, Exploratory Laparoscopy, Hernia Repair, Pancreatic Surgery Genitourinary Surgical Hx: Other Musculskeletal Surgical Hx: Orthopedic Surgery Female Surgical History: Hysterectomy Other Surgical History: 16 different abdominal surgeries, reconstructions bile port, 2 Feeding tubes--removed. 3 ERCP, PORT PLACEDand removed. 2 BLADDER SURGERIES. ELBOW SURGERY AND RIGHT KNEE SCOPE. - Social History Smoking Status: Former smoker How long have you smoked: 30 years Exposure to second hand smoke: No Alcohol: None Drug Use: none - Physical Exam Vital Signs: Vital Signs - 24 hr Temp Pulse Resp BP Pulse Ox 05/12/19 08:47 84 20 97 05/12/19 07:34 98 F 98 H 18 128/66 98 05/12/19 04:15 98.2 F 92 H 18 115/73 99 05/12/19 01:02 98.3 F 91 H 20 126/65 98 05/12/19 00:29 99 05/12/19 00:07 92 H 18 122/77 96 05/11/19 23:00 92 H 16 111/68 94 L 05/11/19 22:00 94 H 18 108/77 95 05/11/19 21:00 96 H 16 126/77 96 05/11/19 19:00 98 H 16 121/75 97 05/11/19 18:04 97.8 F 92 H 20 143/78 98 05/11/19 17:30 91 H 24 156/88 92 L Oxygen-Last 24 hours O2 Percentage 4 Liters = 36% O2 Percentage 4 Liters = 36% Oxygen Flowrate (L/min)-RT 4 Oxygen Flowrate (L/min)-RT 4 General Appearance: no apparent distress, alert Neurologic Exam: alert, oriented x 3, cooperative, normal mood/affect, nml cerebellar function, nml station & gait, sensation nml, No motor deficits Eye Exam: PERRL/EOMI, eyes nml inspection Ears, Nose, Throat Exam: normal ENT inspection, TMs normal, pharynx normal, moist mucous membranes Neck Exam: normal inspection, non-tender, supple, full range of motion Respiratory Exam: normal breath sounds, lungs clear, No respiratory distress Cardiovascular Exam: regular rate/rhythm, normal heart sounds, normal peripheral pulses Gastrointestinal/Abdomen Exam: soft, normal bowel sounds, No tenderness, No mass Back Exam: normal inspection, normal range of motion, No CVA tenderness, No vertebral tenderness Extremity Exam: normal inspection, normal range of motion, pelvis stable Skin Exam: normal color, warm, dry, No rash Lymphatic Exam: No adenopathy Results - Labs Lab/Micro Results: Lab Results-Last 24 Hours 05/11/19 05/11/19 05/11/19 Range/Units 18:05 18:05 18:10 WBC 5.6 (4.0-10.5) K/mm3 RBC 4.84 (4.1-5.4) M/mm3 Hgb 14.8 (12.0-16.0) gm/dl Hct 46.4 (35-47) % MCV 95.9 (78-100) fl MCH 30.6 (26-32) pg MCHC 31.9 L (32-36) g/dl RDW 14.4 H (11.5-14.0) % Plt Count 337 (150-450) K/mm3 MPV 10.3 H (6-9.5) fl Gran % 59.2 (36.0-66.0) % Eos # (Auto) 0.18 (0-0.5) Absolute Lymphs (auto) 1.34 (1.0-4.6) Absolute Monos (auto) 0.70 (0.0-1.3) Lymphocytes % 24.1 (24.0-44.0) % Monocytes % 12.6 H (0.0-12.0) % Eosinophils % 3.2 (0.00-5.0) % Basophils % 0.9 (0.0-0.4) % Absolute Granulocytes 3.30 (1.4-6.9) Basophils # 0.05 (0-0.4) Sodium 142 (137-145) mmol/L Potassium 3.1 L (3.5-5.1) mmol/L Chloride 95 L (98-107) mmol/L Carbon Dioxide 36 H (22-30) mmol/L Anion Gap 13.1 (5-15) MEQ/L BUN 13 (7-17) mg/dL Creatinine 0.68 (0.52-1.04) mg/dL Estimated GFR > 60.0 ML/MIN Glucose 116 H (74-106) mg/dL Lactic Acid 2.0 (0.4-2.0) Calcium 10.1 (8.4-10.2) mg/dL Total Bilirubin 0.60 (0.2-1.3) mg/dL AST 57 H (14-36) U/L ALT 47 H (0-35) U/L Alkaline Phosphatase 105 (38-126) U/L Serum Total Protein 8.2 (6.3-8.2) g/dL Albumin 4.1 (3.5-5.0) g/dL Amylase 75 (30-110) U/L Lipase 189 (23-300) U/L Urine Color (YELLOW) Urine Appearance (CLEAR) Urine pH (5-6) Ur Specific [place] (1.005-1.025) Urine Protein (Negative) Urine Ketones (NEGATIVE) Urine Blood (0-5) Jaret/ul Urine Nitrite (NEGATIVE) Urine Bilirubin (NEGATIVE) Urine Urobilinogen (0-1) mg/dL Ur Leukocyte Esterase (NEGATIVE) Urine WBC (Auto) (0-5) /HPF Urine RBC (Auto) (0-2) /HPF U Epithel Cells (Auto) (FEW) /HPF Urine Bacteria (Auto) (NEGATIVE) /HPF Urine Mucus (Auto) (NEGATIVE) /HPF Urine Culture Reflexed (NO) Urine Glucose (NEGATIVE) mg/dL 05/11/19 05/11/19 05/12/19 Range/Units 18:15 20:42 04:30 WBC 5.5 (4.0-10.5) K/mm3 RBC 4.10 (4.1-5.4) M/mm3 Hgb 12.4 (12.0-16.0) gm/dl Hct 40.1 (35-47) % MCV 97.8 (78-100) fl MCH 30.2 (26-32) pg MCHC 30.9 L (32-36) g/dl RDW 14.4 H (11.5-14.0) % Plt Count 296 (150-450) K/mm3 MPV 10.2 H (6-9.5) fl Gran % 64.7 (36.0-66.0) % Eos # (Auto) 0.14 (0-0.5) Absolute Lymphs (auto) 1.12 (1.0-4.6) Absolute Monos (auto) 0.65 (0.0-1.3) Lymphocytes % 20.4 L (24.0-44.0) % Monocytes % 11.8 (0.0-12.0) % Eosinophils % 2.6 (0.00-5.0) % Basophils % 0.5 (0.0-0.4) % Absolute Granulocytes 3.55 (1.4-6.9) Basophils # 0.03 (0-0.4) Sodium (137-145) mmol/L Potassium (3.5-5.1) mmol/L Chloride (98-107) mmol/L Carbon Dioxide (22-30) mmol/L Anion Gap (5-15) MEQ/L BUN (7-17) mg/dL Creatinine (0.52-1.04) mg/dL Estimated GFR ML/MIN Glucose (74-106) mg/dL Lactic Acid 0.8 (0.4-2.0) Calcium (8.4-10.2) mg/dL Total Bilirubin (0.2-1.3) mg/dL AST (14-36) U/L ALT (0-35) U/L Alkaline Phosphatase (38-126) U/L Serum Total Protein (6.3-8.2) g/dL Albumin (3.5-5.0) g/dL Amylase (30-110) U/L Lipase (23-300) U/L Urine Color NASH (YELLOW) Urine Appearance SLIGHTLY CLOUDY (CLEAR) Urine pH 5.0 (5-6) Ur Specific [place] 1.025 (1.005-1.025) Urine Protein NEGATIVE (Negative) Urine Ketones NEGATIVE (NEGATIVE) Urine Blood SMALL (0-5) Jaret/ul Urine Nitrite NEGATIVE (NEGATIVE) Urine Bilirubin NEGATIVE (NEGATIVE) Urine Urobilinogen 2 (0-1) mg/dL Ur Leukocyte Esterase NEGATIVE (NEGATIVE) Urine WBC (Auto) 3-5 (0-5) /HPF Urine RBC (Auto) 0-2 (0-2) /HPF U Epithel Cells (Auto) MODERATE (FEW) /HPF Urine Bacteria (Auto) NONE (NEGATIVE) /HPF Urine Mucus (Auto) SLIGHT (NEGATIVE) /HPF Urine Culture Reflexed NO (NO) Urine Glucose NEGATIVE (NEGATIVE) mg/dL 05/12/19 05/12/19 Range/Units 04:30 05:02 WBC (4.0-10.5) K/mm3 RBC (4.1-5.4) M/mm3 Hgb (12.0-16.0) gm/dl Hct (35-47) % MCV (78-100) fl MCH (26-32) pg MCHC (32-36) g/dl RDW (11.5-14.0) % Plt Count (150-450) K/mm3 MPV (6-9.5) fl Gran % (36.0-66.0) % Eos # (Auto) (0-0.5) Absolute Lymphs (auto) (1.0-4.6) Absolute Monos (auto) (0.0-1.3) Lymphocytes % (24.0-44.0) % Monocytes % (0.0-12.0) % Eosinophils % (0.00-5.0) % Basophils % (0.0-0.4) % Absolute Granulocytes (1.4-6.9) Basophils # (0-0.4) Sodium 141 (137-145) mmol/L Potassium 4.3 D 4.3 (3.5-5.1) mmol/L Chloride 102 (98-107) mmol/L Carbon Dioxide 35 H (22-30) mmol/L Anion Gap 8.7 (5-15) MEQ/L BUN 11 (7-17) mg/dL Creatinine 0.67 (0.52-1.04) mg/dL Estimated GFR > 60.0 ML/MIN Glucose 110 H (74-106) mg/dL Lactic Acid (0.4-2.0) Calcium 9.6 (8.4-10.2) mg/dL Total Bilirubin 0.40 (0.2-1.3) mg/dL AST 48 H (14-36) U/L ALT 37 H (0-35) U/L Alkaline Phosphatase 81 (38-126) U/L Serum Total Protein 6.7 (6.3-8.2) g/dL Albumin 3.3 L (3.5-5.0) g/dL Amylase (30-110) U/L Lipase (23-300) U/L Urine Color (YELLOW) Urine Appearance (CLEAR) Urine pH (5-6) Ur Specific [place] (1.005-1.025) Urine Protein (Negative) Urine Ketones (NEGATIVE) Urine Blood (0-5) Jaret/ul Urine Nitrite (NEGATIVE) Urine Bilirubin (NEGATIVE) Urine Urobilinogen (0-1) mg/dL Ur Leukocyte Esterase (NEGATIVE) Urine WBC (Auto) (0-5) /HPF Urine RBC (Auto) (0-2) /HPF U Epithel Cells (Auto) (FEW) /HPF Urine Bacteria (Auto) (NEGATIVE) /HPF Urine Mucus (Auto) (NEGATIVE) /HPF Urine Culture Reflexed (NO) Urine Glucose (NEGATIVE) mg/dL - Radiology Impressions Radiology Exams & Impressions: Radiology Procedures Category Date Time Status ABDOMEN AND PELVIS W/0 CONTRAS [CT] Stat Exams 05/11/19 17:41 Completed - Other Procedures and Tests Respiratory Therapy 05/12/19 08:22 Oxygen Nasal Cannula 2 lpm Respiratory Therapy Assessment DAILY 05/12/19 08:23 Flutter Therapy UD Peak Expiratory Flow Rate ONCE Assessment/Plan (1) Abdominal pain Current Visit: Yes Status: Acute Qualifiers: Abdominal location: generalized Qualified Code(s): R10.84 - Generalized abdominal pain Code(s): R10.9 - UNSPECIFIED ABDOMINAL PAIN (2) Hypokalemia due to excessive gastrointestinal loss of potassium Current Visit: Yes Status: Acute Code(s): E87.6 - HYPOKALEMIA (3) Vomiting Current Visit: Yes Status: Acute Qualifiers: Vomiting type: unspecified Vomiting Intractability: non-intractable Nausea presence: with nausea Qualified Code(s): R11.2 - Nausea with vomiting, unspecified Code(s): R11.10 - VOMITING, UNSPECIFIED (4) Chronic abdominal pain Current Visit: Yes Status: Chronic Code(s): R10.9 - UNSPECIFIED ABDOMINAL PAIN; G89.29 - OTHER CHRONIC PAIN (5) Chronic pancreatitis Current Visit: Yes Status: Chronic Code(s): K86.1 - OTHER CHRONIC PANCREATITIS Hospital Summary - Vitals & Intake/Output Vital Signs: Vital Signs Temperature 98 F 05/12/19 07:34 Pulse Rate 84 05/12/19 08:47 Respiratory Rate 20 05/12/19 08:47 Blood Pressure 128/66 05/12/19 07:34 O2 Sat by Pulse Oximetry 97 05/12/19 08:47 Oxygen-Last Documented O2 Percentage 4 Liters = 36% Intake & Output: Intake & Output 05/09/19 05/10/19 05/11/19 05/12/19 11:59 11:59 11:59 11:59 Intake Total 403 Output Total 100 Balance 303 Weight 59.2 kg - Lab Result Diagrams: 05/12/19 04:30 05/12/19 05:02 Lab Results-Last 24 Hrs: Lab Results-Last 24 Hours 05/11/19 05/11/19 05/11/19 Range/Units 18:05 18:05 18:10 WBC 5.6 (4.0-10.5) K/mm3 RBC 4.84 (4.1-5.4) M/mm3 Hgb 14.8 (12.0-16.0) gm/dl Hct 46.4 (35-47) % MCV 95.9 (78-100) fl MCH 30.6 (26-32) pg MCHC 31.9 L (32-36) g/dl RDW 14.4 H (11.5-14.0) % Plt Count 337 (150-450) K/mm3 MPV 10.3 H (6-9.5) fl Gran % 59.2 (36.0-66.0) % Eos # (Auto) 0.18 (0-0.5) Absolute Lymphs (auto) 1.34 (1.0-4.6) Absolute Monos (auto) 0.70 (0.0-1.3) Lymphocytes % 24.1 (24.0-44.0) % Monocytes % 12.6 H (0.0-12.0) % Eosinophils % 3.2 (0.00-5.0) % Basophils % 0.9 (0.0-0.4) % Absolute Granulocytes 3.30 (1.4-6.9) Basophils # 0.05 (0-0.4) Sodium 142 (137-145) mmol/L Potassium 3.1 L (3.5-5.1) mmol/L Chloride 95 L (98-107) mmol/L Carbon Dioxide 36 H (22-30) mmol/L Anion Gap 13.1 (5-15) MEQ/L BUN 13 (7-17) mg/dL Creatinine 0.68 (0.52-1.04) mg/dL Estimated GFR > 60.0 ML/MIN Glucose 116 H (74-106) mg/dL Lactic Acid 2.0 (0.4-2.0) Calcium 10.1 (8.4-10.2) mg/dL Total Bilirubin 0.60 (0.2-1.3) mg/dL AST 57 H (14-36) U/L ALT 47 H (0-35) U/L Alkaline Phosphatase 105 (38-126) U/L Serum Total Protein 8.2 (6.3-8.2) g/dL Albumin 4.1 (3.5-5.0) g/dL Amylase 75 (30-110) U/L Lipase 189 (23-300) U/L Urine Color (YELLOW) Urine Appearance (CLEAR) Urine pH (5-6) Ur Specific [place] (1.005-1.025) Urine Protein (Negative) Urine Ketones (NEGATIVE) Urine Blood (0-5) Jaret/ul Urine Nitrite (NEGATIVE) Urine Bilirubin (NEGATIVE) Urine Urobilinogen (0-1) mg/dL Ur Leukocyte Esterase (NEGATIVE) Urine WBC (Auto) (0-5) /HPF Urine RBC (Auto) (0-2) /HPF U Epithel Cells (Auto) (FEW) /HPF Urine Bacteria (Auto) (NEGATIVE) /HPF Urine Mucus (Auto) (NEGATIVE) /HPF Urine Culture Reflexed (NO) Urine Glucose (NEGATIVE) mg/dL 05/11/19 05/11/19 05/12/19 Range/Units 18:15 20:42 04:30 WBC 5.5 (4.0-10.5) K/mm3 RBC 4.10 (4.1-5.4) M/mm3 Hgb 12.4 (12.0-16.0) gm/dl Hct 40.1 (35-47) % MCV 97.8 (78-100) fl MCH 30.2 (26-32) pg MCHC 30.9 L (32-36) g/dl RDW 14.4 H (11.5-14.0) % Plt Count 296 (150-450) K/mm3 MPV 10.2 H (6-9.5) fl Gran % 64.7 (36.0-66.0) % Eos # (Auto) 0.14 (0-0.5) Absolute Lymphs (auto) 1.12 (1.0-4.6) Absolute Monos (auto) 0.65 (0.0-1.3) Lymphocytes % 20.4 L (24.0-44.0) % Monocytes % 11.8 (0.0-12.0) % Eosinophils % 2.6 (0.00-5.0) % Basophils % 0.5 (0.0-0.4) % Absolute Granulocytes 3.55 (1.4-6.9) Basophils # 0.03 (0-0.4) Sodium (137-145) mmol/L Potassium (3.5-5.1) mmol/L Chloride (98-107) mmol/L Carbon Dioxide (22-30) mmol/L Anion Gap (5-15) MEQ/L BUN (7-17) mg/dL Creatinine (0.52-1.04) mg/dL Estimated GFR ML/MIN Glucose (74-106) mg/dL Lactic Acid 0.8 (0.4-2.0) Calcium (8.4-10.2) mg/dL Total Bilirubin (0.2-1.3) mg/dL AST (14-36) U/L ALT (0-35) U/L Alkaline Phosphatase (38-126) U/L Serum Total Protein (6.3-8.2) g/dL Albumin (3.5-5.0) g/dL Amylase (30-110) U/L Lipase (23-300) U/L Urine Color NASH (YELLOW) Urine Appearance SLIGHTLY CLOUDY (CLEAR) Urine pH 5.0 (5-6) Ur Specific [place] 1.025 (1.005-1.025) Urine Protein NEGATIVE (Negative) Urine Ketones NEGATIVE (NEGATIVE) Urine Blood SMALL (0-5) Jaret/ul Urine Nitrite NEGATIVE (NEGATIVE) Urine Bilirubin NEGATIVE (NEGATIVE) Urine Urobilinogen 2 (0-1) mg/dL Ur Leukocyte Esterase NEGATIVE (NEGATIVE) Urine WBC (Auto) 3-5 (0-5) /HPF Urine RBC (Auto) 0-2 (0-2) /HPF U Epithel Cells (Auto) MODERATE (FEW) /HPF Urine Bacteria (Auto) NONE (NEGATIVE) /HPF Urine Mucus (Auto) SLIGHT (NEGATIVE) /HPF Urine Culture Reflexed NO (NO) Urine Glucose NEGATIVE (NEGATIVE) mg/dL 05/12/19 05/12/19 Range/Units 04:30 05:02 WBC (4.0-10.5) K/mm3 RBC (4.1-5.4) M/mm3 Hgb (12.0-16.0) gm/dl Hct (35-47) % MCV (78-100) fl MCH (26-32) pg MCHC (32-36) g/dl RDW (11.5-14.0) % Plt Count (150-450) K/mm3 MPV (6-9.5) fl Gran % (36.0-66.0) % Eos # (Auto) (0-0.5) Absolute Lymphs (auto) (1.0-4.6) Absolute Monos (auto) (0.0-1.3) Lymphocytes % (24.0-44.0) % Monocytes % (0.0-12.0) % Eosinophils % (0.00-5.0) % Basophils % (0.0-0.4) % Absolute Granulocytes (1.4-6.9) Basophils # (0-0.4) Sodium 141 (137-145) mmol/L Potassium 4.3 D 4.3 (3.5-5.1) mmol/L Chloride 102 (98-107) mmol/L Carbon Dioxide 35 H (22-30) mmol/L Anion Gap 8.7 (5-15) MEQ/L BUN 11 (7-17) mg/dL Creatinine 0.67 (0.52-1.04) mg/dL Estimated GFR > 60.0 ML/MIN Glucose 110 H (74-106) mg/dL Lactic Acid (0.4-2.0) Calcium 9.6 (8.4-10.2) mg/dL Total Bilirubin 0.40 (0.2-1.3) mg/dL AST 48 H (14-36) U/L ALT 37 H (0-35) U/L Alkaline Phosphatase 81 (38-126) U/L Serum Total Protein 6.7 (6.3-8.2) g/dL Albumin 3.3 L (3.5-5.0) g/dL Amylase (30-110) U/L Lipase (23-300) U/L Urine Color (YELLOW) Urine Appearance (CLEAR) Urine pH (5-6) Ur Specific [place] (1.005-1.025) Urine Protein (Negative) Urine Ketones (NEGATIVE) Urine Blood (0-5) Jaret/ul Urine Nitrite (NEGATIVE) Urine Bilirubin (NEGATIVE) Urine Urobilinogen (0-1) mg/dL Ur Leukocyte Esterase (NEGATIVE) Urine WBC (Auto) (0-5) /HPF Urine RBC (Auto) (0-2) /HPF U Epithel Cells (Auto) (FEW) /HPF Urine Bacteria (Auto) (NEGATIVE) /HPF Urine Mucus (Auto) (NEGATIVE) /HPF Urine Culture Reflexed (NO) Urine Glucose (NEGATIVE) mg/dL - Radiology Exams Ordered Rad Exams-Entire Visit: Radiology Procedures Category Date Time Status ABDOMEN AND PELVIS W/0 CONTRAS [CT] Stat Exams 05/11/19 17:41 Completed - Procedures and Test Procedures and Tests throughout Hospitalization: Therapy Orders & Screens 05/12/19 08:22 Oxygen Nasal Cannula 2 lpm Comment: Diagnosis: hypokalemia, vomiting Respiratory Therapy Assessment DAILY Comment: Diagnosis: hypokalemia, vomiting 05/12/19 08:23 Flutter Therapy UD Comment: Diagnosis: hypokalemia, vomiting Peak Expiratory Flow Rate ONCE Comment: Reason For Exam: Diagnosis: hypokalemia, vomiting - Discharge Disposition: Home, Self-Care Condition: Stable Prescriptions: No Action Cyclobenzaprine HCl [Flexeril] 10 mg PO UD Gabapentin 300 mg PO TID Alprazolam [Xanax] 1 mg PO TID Levothyroxine Sodium 50 Mcg [Synthroid 50 Mcg] 75 mcg PO DAILY Non-Formulary Drug [Non-Formulary Item] 0 mg UD Albuterol/Ipratropium 3ml Neb* [DUONEB 0.5-3 MG/3 ml Neb] 2.5 mg IH QIDRT Oxybutynin Chloride Xl 5 mg [Ditropan XL 5 MG] 5 mg PO DAILY Fluticasone/Vilanterol [Breo Ellipta 100-25 Mcg INH] 1 puff IH DAILY Atorvastatin Calcium [Lipitor] 10 mg PO DAILY Albuterol Sulfate [Ventolin Hfa] 18 gm IH QID Follow up with: BRODERICK LAINEZ MD [Primary Care Provider] - 1 Week
[2019-05-12] MEDS ORDERED: ROCEPHIN 1 Gm-D5w 50 ml Bag** 1 G/50 ML IVPB IV SCH (09:30)
[2019-05-12] MEDS ORDERED: Zithromax 500 MG/ 250 ML NaCl Premix 500 MG/250 ML IVPB IV SCH (09:30)
--- NOTE | 2019-05-12 09:56 | XRAY ---
Indication: Hypoxia. Nausea. Comparison: March 09, 2019. PA/lateral chest remains hyperinflated and clear again with incidental right lung calcified granulomas. Heart and mediastinal structures within normal limits. Bony thorax intact. No new/acute findings. Impression: Stable nonacute hyperinflated chest with chronic features.
[2019-05-12] MEDS ORDERED: SYNTHROID 75 MCG PO SCH (10:00)
[2019-05-12] MEDS ORDERED: Ventolin Hfa MDI IH SCH (10:00)
[2019-05-12] MEDS ORDERED: SYNTHROID 50 MCG PO SCH (10:00)
[2019-05-12] MEDS ORDERED: Ditropan XL 5 MG PO SCH (10:00)
[2019-05-12] MEDS ORDERED: NON-FORMULARY ITEM (Atorvastatin Calcium [Lipitor] 10 MG) PO SCH (10:00)
[2019-05-12] MEDS ORDERED: xanAX 0.5 MG PO SCH (10:00)
[2019-05-12] MEDS ORDERED: NON-FORMULARY ITEM (Cyclobenzaprine Hcl [Flexeril] 10 MG) PO SCH (10:00)
[2019-05-12] MEDS ORDERED: NON-FORMULARY ITEM (Fluticasone/Vilanterol [Breo Ellipta 100-25 Mcg Inh] 1 PUFF) IH SCH (10:00)
[2019-05-12] MEDS ORDERED: NEURONTIN 300 MG PO SCH (10:00)
[2019-05-12] MEDS ORDERED: PROVENTIL COMMON CANISTER IH PRN (10:09)
[2019-05-12] MEDS ORDERED: Cyclobenzaprine 10 MG PO SCH (10:15)
[2019-05-12] MEDS ORDERED: Advair Hfa 115/21 Common canister IH SCH (10:15)
[2019-05-12] MEDS ORDERED: DUONEB 0.5-3 MG/3 ml Neb IH SCH (11:00)
[2019-05-12 12:31] VITALS: BP 107/60; PULSE 80; O2SAT 98
[2019-05-12 15:15] LABS: Amphetamine,Urine NEGATIVE (NEGATIVE); Barbiturate,Urine NEGATIVE (NEGATIVE); Benzodiazepine,Urine POSITIVE (NEGATIVE); Cocaine,Urine NEGATIVE (NEGATIVE); Methadone,Urine NEGATIVE (NEGATIVE); Opiate,Urine POSITIVE (NEGATIVE); PCP,Urine NEGATIVE (NEGATIVE); THC,Urine NEGATIVE (NEGATIVE)
[2019-05-12] MEDS ORDERED: Zocor 10MG PO SCH (22:00)
== END 2019-05-12 15:55 | disposition home or self-care (01) ==
LOC: ED 16:13 → MED SURG 05-12 00:25
PROVIDERS: ADMIT General Practice; ATTEND General Practice
DX: R10.84 Generalized abdominal pain (principal); E87.6 Hypokalemia; R11.2 Nausea with vomiting, unspecified; R19.7 Diarrhea, unspecified; J44.9 Chronic obstructive pulmonary disease, unspecified; K86.1 Other chronic pancreatitis; G89.29 Other chronic pain; E03.9 Hypothyroidism, unspecified; Z99.81 Dependence on supplemental oxygen; Z79.899 Other long term (current) drug therapy
CPT/HCPCS: 36000; 36415; 71046; 74176; 80053; 80307; 81001; 82150; 83605; 83690; 84132; 85025; 94150; 94640; 94667; 94760; 96374; 96375; 99285; G0480; P9612; 90791; 93268; 94762; 96360; 96365; J1170; J2405; J3480; Q3014; A9270-GY; G0378

== ENCOUNTER 2019-07-02 17:42 | Emergency (ER) | payer MEDICARE ==
--- NOTE | 2019-07-02 18:53 | ERPHSYRPT ---
- History of Present Illness Time Seen by Provider: 07/02/19 18:40 Source: patient Exam Limitations: no limitations Patient Subjective Stated Complaint: "I have been sweating and having fevers past few days" Triage Nursing Assessment: Pt aaox3, walked in, c/o "sweating alot" past few days and states today got scared today because of shaking alot and sweating. Denies other symptoms. Patient states does have home 02 at [facility]. Color good, resp easy, placed on 02 at [facility]. Physician History: 54 y/o white female presents with sweating intermittently for 5 days. pt did not take her temperature but she was chilling and sweating worse today. pt has oxygen dependent copd. denies n/v/d. pt has a mild cough. pt denies urinary sx. Timing/Duration: day(s) (5) Fever Severity: gone Fever Therapy ACTUARIAL TRAINEE: none Associated Symptoms: cough, muscle aches (with chills), No rhinorrhea, No shortness of breath, No sore throat Allergies/Adverse Reactions: NSAIDS (Non-Steroidal Anti-Inflamma Allergy (Mild, Verified 05/11/19 17:37) unsure of reaction doxycycline Allergy (Verified 05/11/19 17:37) Tightness of Throat Home Medications: Cyclobenzaprine HCl [Flexeril] 10 mg PO UD 08/14/13 [History] Alprazolam [Xanax] 1 mg PO TID 12/27/14 [History] Gabapentin 300 mg PO TID 12/27/14 [History] Levothyroxine Sodium 50 Mcg [Synthroid 50 Mcg] 75 mcg PO DAILY 07/13/16 [ History] Non-Formulary Drug [Non-Formulary Item] 0 mg UD 08/03/17 [History] Albuterol Sulfate [Ventolin Hfa] 18 gm IH QID 02/21/19 [History] Albuterol/Ipratropium 3ml Neb* [DUONEB 0.5-3 MG/3 ml Neb] 2.5 mg IH QIDRT [History] Atorvastatin Calcium [Lipitor] 10 mg PO DAILY 02/21/19 [History] Fluticasone/Vilanterol [Breo Ellipta 100-25 Mcg INH] 1 puff IH DAILY 02/21/19 [ History] Oxybutynin Chloride Xl 5 mg [Ditropan XL 5 MG] 5 mg PO DAILY 02/21/19 [ History] Hx Tetanus, Diphtheria Vaccination/Date Given: No Hx Influenza Vaccination/Date Given: No Hx Pneumococcal Vaccination/Date Given: No - Review of Systems Constitutional: Fever, Chills Eyes: No Symptoms Ears, Nose, & Throat: No Symptoms Respiratory: Cough Cardiac: No Symptoms Abdominal/Gastrointestinal: No Symptoms Genitourinary Symptoms: No Symptoms Musculoskeletal: No Symptoms Skin: No Symptoms Neurological: No Symptoms Psychological: No Symptoms Endocrine: Excessive Sweating Hematologic/Lymphatic: No Symptoms Immunological/Allergic: No Symptoms All Other Systems: Reviewed and Negative - Past Medical History Pertinent Past Medical History: Yes Neurological History: No Pertinent History ENT History: No Pertinent History Cardiac History: No Pertinent History Respiratory History: Asthma, Bronchitis, COPD, Emphysema, Other Endocrine Medical History: Hypothyroidism Musculoskeletal History: No Pertinent History GI Medical History: Polyps, Other, Pancreatitis History: Other Psycho-Social History: Anxiety, Depression, Other Female Reproductive Disorders: Cervical Cancer, Ovarian Cancer Other Medical History: PANCREATIC DIVISION, CHRONIC PAIN. PAIN PUMP FOR PANCREATITIS - Past Surgical History Past Surgical History: Yes Neuro Surgical History: No Pertinent History Cardiac: No Pertinent History Respiratory: No Pertinent History Gastrointestinal: Cholecystectomy, Exploratory Laparoscopy, Hernia Repair, Pancreatic Surgery Genitourinary: Other Musculoskeletal: Orthopedic Surgery Female Surgical History: Hysterectomy Other Surgical History: 16 different abdominal surgeries, reconstructions bile port, 2 Feeding tubes--removed. 3 ERCP, PORT PLACEDand removed. 2 BLADDER SURGERIES. ELBOW SURGERY AND RIGHT KNEE SCOPE. - Social History Smoking Status: Former smoker How long have you smoked: 30 years Exposure to second hand smoke: No Drug Use: none Patient Lives Alone: No - Female History Hx Now: No - Nursing Vital Signs Nursing Vital Signs: Initial Vital Signs Temperature 98.5 F 07/02/19 18:12 Pulse Rate 103 H 07/02/19 18:12 Respiratory Rate 20 07/02/19 18:12 Blood Pressure 101/77 07/02/19 18:12 O2 Sat by Pulse Oximetry 91 L 07/02/19 18:12 Pain Scale Pain Intensity 0 - Physical Exam General Appearance: no apparent distress, alert, anxiety Eye Exam: PERRL/EOMI, eyes nml inspection ENT Exam: normal ENT inspection Neck Exam: normal inspection, non-tender, supple, full range of motion, trachea midline, No stiff neck Respiratory Exam: normal breath sounds, chest non-tender, lungs clear, no respiratory distress, no accessory muscle use Gastrointestinal/Abdominal Exam: soft, non tender, no distention Pelvic Exam: not done Rectal Exam: not done Extremity Exam: non-tender, normal range of motion, normal inspection Neurologic Exam: alert, oriented x 3, cooperative, personal property assessor II-XII nml as tested Skin Exam: normal color, warm, dry Lymphatic: No adenopathy SpO2 Interpretation: normal SpO2: 91 O2 Delivery: Nasal Cannula (3 liters nc) - Course Nursing assessment & vital signs reviewed: Yes Ordered Tests: Active Orders 24 hr Category Date Time Status CHEST 1 VIEW (PORTABLE) Stat Exams 07/02/19 18:54 Taken CBC W DIFF Stat Lab 07/02/19 18:53 Completed CMP Stat Lab 07/02/19 18:53 Completed UA W/RFX UR CULTURE Stat Lab 07/02/19 18:53 Completed Lab/Rad Data: Laboratory Result Diagrams 07/02/19 18:53 07/02/19 18:53 Laboratory Results 07/02/19 07/02/19 07/02/19 Range/Units Unknown 18:53 18:53 WBC 9.7 (4.0-10.5) K/mm3 RBC 5.02 (4.1-5.4) M/mm3 Hgb 15.1 (12.0-16.0) gm/dl Hct 48.0 H (35-47) % MCV 95.6 (78-100) fl MCH 30.1 (26-32) pg MCHC 31.5 L (32-36) g/dl RDW 13.9 (11.5-14.0) % Plt Count 221 (150-450) K/mm3 MPV 10.2 H (6-9.5) fl Gran % 70.4 H (36.0-66.0) % Eos # (Auto) 0.25 (0-0.5) Absolute Lymphs (auto) 1.95 (1.0-4.6) Absolute Monos (auto) 0.65 (0.0-1.3) Lymphocytes % 20.1 L (24.0-44.0) % Monocytes % 6.7 (0.0-12.0) % Eosinophils % 2.6 (0.00-5.0) % Basophils % 0.2 (0.0-0.4) % Absolute Granulocytes 6.82 (1.4-6.9) Basophils # 0.02 (0-0.4) Sodium 142 (137-145) mmol/L Potassium 4.6 (3.5-5.1) mmol/L Chloride 101 (98-107) mmol/L Carbon Dioxide 33 H (22-30) mmol/L Anion Gap 12.0 (5-15) MEQ/L BUN 9 (7-17) mg/dL Creatinine 0.52 (0.52-1.04) mg/dL Estimated GFR > 60.0 ML/MIN Glucose 163 H (74-106) mg/dL Calcium 10.5 H (8.4-10.2) mg/dL Total Bilirubin 0.40 (0.2-1.3) mg/dL AST 42 H (14-36) U/L ALT 31 (0-35) U/L Alkaline Phosphatase 126 (38-126) U/L Serum Total Protein 8.6 H (6.3-8.2) g/dL Albumin 4.4 (3.5-5.0) g/dL Urine Color (YELLOW) Urine Appearance (CLEAR) Urine pH (5-6) Ur Specific [place] (1.005-1.025) Urine Protein (Negative) Urine Ketones (NEGATIVE) Urine Blood (0-5) Jaret/ul Urine Nitrite (NEGATIVE) Urine Bilirubin (NEGATIVE) Urine Urobilinogen (0-1) mg/dL Ur Leukocyte Esterase (NEGATIVE) Urine WBC (Auto) (0-5) /HPF Urine RBC (Auto) (0-2) /HPF U Hyaline Cast (Auto) (0-2) /LPF U Epithel Cells (Auto) (FEW) /HPF Urine Bacteria (Auto) (NEGATIVE) /HPF Urine Mucus (Auto) (NEGATIVE) /HPF Urine Culture Reflexed (NO) Urine Glucose (NEGATIVE) mg/dL Influenza Type A Ag NEGATIVE (NEGATIVE) Influenza Type B Ag NEGATIVE (NEGATIVE) RSV (PCR) NEGATIVE (Negative) Group A Strep Antibody NEGATIVE (NEGATIVE) 07/02/19 Range/Units 18:53 WBC (4.0-10.5) K/mm3 RBC (4.1-5.4) M/mm3 Hgb (12.0-16.0) gm/dl Hct (35-47) % MCV (78-100) fl MCH (26-32) pg MCHC (32-36) g/dl RDW (11.5-14.0) % Plt Count (150-450) K/mm3 MPV (6-9.5) fl Gran % (36.0-66.0) % Eos # (Auto) (0-0.5) Absolute Lymphs (auto) (1.0-4.6) Absolute Monos (auto) (0.0-1.3) Lymphocytes % (24.0-44.0) % Monocytes % (0.0-12.0) % Eosinophils % (0.00-5.0) % Basophils % (0.0-0.4) % Absolute Granulocytes (1.4-6.9) Basophils # (0-0.4) Sodium (137-145) mmol/L Potassium (3.5-5.1) mmol/L Chloride (98-107) mmol/L Carbon Dioxide (22-30) mmol/L Anion Gap (5-15) MEQ/L BUN (7-17) mg/dL Creatinine (0.52-1.04) mg/dL Estimated GFR ML/MIN Glucose (74-106) mg/dL Calcium (8.4-10.2) mg/dL Total Bilirubin (0.2-1.3) mg/dL AST (14-36) U/L ALT (0-35) U/L Alkaline Phosphatase (38-126) U/L Serum Total Protein (6.3-8.2) g/dL Albumin (3.5-5.0) g/dL Urine Color YELLOW (YELLOW) Urine Appearance SLIGHTLY CLOUDY (CLEAR) Urine pH 5.0 (5-6) Ur Specific [place] 1.029 (1.005-1.025) Urine Protein NEGATIVE (Negative) Urine Ketones NEGATIVE (NEGATIVE) Urine Blood SMALL (0-5) Jaret/ul Urine Nitrite NEGATIVE (NEGATIVE) Urine Bilirubin NEGATIVE (NEGATIVE) Urine Urobilinogen NEGATIVE (0-1) mg/dL Ur Leukocyte Esterase NEGATIVE (NEGATIVE) Urine WBC (Auto) 0-2 (0-5) /HPF Urine RBC (Auto) 3-5 (0-2) /HPF U Hyaline Cast (Auto) 6-10 (0-2) /LPF U Epithel Cells (Auto) NONE (FEW) /HPF Urine Bacteria (Auto) NONE (NEGATIVE) /HPF Urine Mucus (Auto) MODERATE (NEGATIVE) /HPF Urine Culture Reflexed NO (NO) Urine Glucose NEGATIVE (NEGATIVE) mg/dL Influenza Type A Ag (NEGATIVE) Influenza Type B Ag (NEGATIVE) RSV (PCR) (Negative) Group A Strep Antibody (NEGATIVE) - Progress Progress: improved Counseled pt/family regarding: lab results, diagnosis, need for follow-up - Departure Departure Disposition: Home Clinical Impression: Diaphoresis Condition: Stable Critical Care Time: No Referrals: BRODERICK LAINEZ MD [Primary Care Provider] - Additional Instructions: take your medications as prescribed. follow up with primary doctor for further management
[2019-07-02 19:26] LABS: Absolute Neutrophil Ct (ANC) 6.82 (1.4-6.9); BASOPHIL % 0.2 % (0.0-0.4); Basophil (Absolute #) 0.02 (0-0.4); Eosinophil % 2.6 % (0.00-5.0); Eosinophil (Absolute #) 0.25 (0-0.5); Hemoglobin 15.1 gm/dl (12.0-16.0); Lymphocyte (Absolute #) 1.95 (1.0-4.6); Lymphocytes % 20.1 % (24.0-44.0); Mean Cell Volume 95.6 fl (78-100); Mean Corpuscular Hemoglobin 30.1 pg (26-32); Mean Corpuscular Hgb Concent. 31.5 g/dl (32-36); Mean Platelet Volume 10.2 fl (6-9.5); Monocyte (Absolute #) 0.65 (0.0-1.3); Monocytes % 6.7 % (0.0-12.0); Neutrophil % 70.4 % (36.0-66.0); Platelet Count 221 K/mm3 (150-450); Red Blood Count 5.02 M/mm3 (4.1-5.4); Red Cell Distribution Width 13.9 % (11.5-14.0); White Blood Count 9.7 K/mm3 (4.0-10.5)
[2019-07-02 19:38] LABS: ALBUMIN 4.4 g/dL (3.5-5.0); ALKALINE PHOSPHATASE 126 U/L (38-126); BLOOD UREA NITROGEN 9 mg/dL (7-17); CHLORIDE 101 mmol/L (98-107); Calcium 10.5 mg/dL (8.4-10.2); Carbon Dioxide 33 mmol/L (22-30); Creatinine 1 0.52 mg/dL (0.52-1.04); Glucose 163 mg/dL (74-106); Potassium 4.6 mmol/L (3.5-5.1); SGOT/AST 42 U/L (14-36); SGPT/ALT 31 U/L (0-35); SODIUM 142 mmol/L (137-145); Total Protein 8.6 g/dL (6.3-8.2)
[2019-07-02 20:10] LABS: Group A Strep NEGATIVE (NEGATIVE); INFLUENZA A NEGATIVE (NEGATIVE); INFLUENZA B NEGATIVE (NEGATIVE); RESPIRATORY SYNCTIAL VIRUS NEGATIVE (Negative)
[2019-07-02 21:13] VITALS: BP 116/70
[2019-07-02 21:25] LABS: Appearance SLIGHTLY CLOUDY (CLEAR); Bilirubin NEGATIVE (NEGATIVE); Blood SMALL Ery/ul (0-5); Glucose NEGATIVE (NEGATIVE); Ketones NEGATIVE (NEGATIVE); Leukocyte Esterase NEGATIVE (NEGATIVE); Mucus MODERATE /HPF (NEGATIVE); Nitrite NEGATIVE (NEGATIVE); Protein,Urine Dip NEGATIVE (Negative); Specific Gravity 1.029 (1.005-1.025); Urobilinogen NEGATIVE mg/dL (0-1); WBC 0-2 /HPF (0-5)
[2019-07-02 21:58] VITALS: PULSE 82
[2019-07-02 22:06] VITALS: O2SAT 91
[2019-07-02] MEDS ORDERED: Hydromorphone 1 mg/ml Ampule IM ONE (22:06)
[2019-07-02] MEDS ORDERED: ZOFRAN ODT 4 MG PO ONE (22:06)
[2019-07-02] MEDS ORDERED: ZOFRAN ODT 4 MG ONE (22:09)
[2019-07-02] MEDS ORDERED: Hydromorphone 1 mg/ml Ampule ONE (22:09)
--- NOTE | 2019-07-03 09:22 | XRAY ---
Indication: Fever and cough. Comparison: May 12, 2019. Portable chest again demonstrates normal heart and lungs with incidental calcified granulomas. No new/acute findings.
== END 2019-07-02 22:24 | disposition home or self-care (01) ==
LOC: ED 17:42
DX: R61 Generalized hyperhidrosis (principal)
CPT/HCPCS: 36415; 71045; 80053; 81001; 85025; 87631; 87651; 96372; 99284; J1170; Q0162